=== PATIENT | female | born 1970 | race Caucasian/White ===

== ENCOUNTER → 2021-03-08 01:00 | Outpatient (CLI) | payer OTHER, SELFPAY ==
[2021-03-09 18:17] LABS: SARS-CoV-2 RNA PCR Positive
== END ==
PROVIDERS: PCP Internal Medicine; Visit Provider Internal Medicine
DX: U07.1 COVID-19 (principal)
CPT/HCPCS: C9803; U0003; U0005

== ENCOUNTER 2024-09-02 11:59 | Emergency (ER) | payer OTHER, SELFPAY ==
--- NOTE | ~2024-09-02 | CT_ITS ---
EXAM: CT abdomen pelvis wo con - 09/02/2024 13:15 CDT History: 53 years old Female with left flank pain TECHNIQUE: Multidetector CT of the abdomen and pelvis without contrast. Coronal and sagittal reforma ts were also provided for review. Automatic exposure control was used for this study. COMPARISON: 03/01/2018. FINDINGS: Evaluation of bowel and hollow viscera is limited in the absence of oral contrast. VISUALIZED CHEST: Basilar atelectasis and/or scarring. Moderate-sized hiatal hernia. ABDOMEN and PELVIS: LIVER: Within normal limits. GALLBLADDER: No calcified gallstones. BILE DUCTS: No dilatation. SPLEEN: Within normal limits. PANCREAS: Within normal limits. ADRENAL GLANDS: Within normal limits. KIDNEYS and URETERS: Moderate to severe left hydroureteronephrosis with transition point in the left distal ureter, right before ureteropelvic junction. No discrete calculus seen. URINARY BLADDER: Within normal limits. STOMACH and BOWEL: No abnormal bowel wall thickening. No obstruction. REPRODUCTIVE ORGANS: Uterus is present. IUD seen. MESENTERY/PERITONEAL CAVITY: No free fluid or pneumoperitoneum. LYMPH NODES: No abdominal or pelvic lymphadenopathy. ABDOMINAL WALL: Within normal limits. VASCULATURE: Within normal limits. MUSCULOSKELETAL: Multilevel degenerative changes of the spine. IMPRESSION: Moderate to severe left hydroureteronephrosis with transition point in the left distal ureter, right before ureteropelvic junction. No discrete calculus seen. Reviewed, dictated and finalized at location A.
--- OUTSIDE RECORDS SUMMARY | 2024-09-02 12:01 | XMS_ITS | Clinical Summary ---
Author Organization [facility] [employer] [address] [place] [address] [address] [address] [place] [address] Care Team Providers Care Overhead Cleaner Maintainer Name Role Phone Angelito Carrero MD Primary Care Provider [phone] Allergies Active Allergy Reactions Criticality Noted Date Comments Sulfa (Sulfonamide Antibiotics) Nausea and Vomiting Low 11/15/2018 Medications phentermine/topira mate (QSYMIA ORAL) A ctive Phentermine 15 mg Capsule Active Active Problems No known active problems Family History Medical History Relation Name Comments Heart Disease Brother 1 Heart Disease Brother 2 Other Father kidney failure Lung Cancer Mother Relation Name Status Comments Brother 1 Alive Brother 2 Father Mother Social History Tobacco Use Types Packs/Day Years Used Date Smoking Tobacco: Never Alcohol Use Standard Drinks/Week Comments Yes 0 (1 standard drink = 0.6 oz pur e alcohol) rare Comments Unknown Sex and Gender Information Value Date Recorded Sex Assigned at Not on file Legal Sex Female 9:33 PM CDT Gender Identity Not on file Sexual Orientation Not on file 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 Not on file Not on file Not on fi le Last Filed Vital Signs Vital Sign Reading Time Taken Comments Blood Pressure 128/64 11/15/2018 10:47 AM CDT Pulse - - Temperature - - Respiratory Rate - - Oxygen Saturation - - Inhaled Oxygen Concentration - - Weight 102.1 kg (225 lb) 11/15/2018 10:47 AM CDT Height 162.6 cm (5' 4) 11/15/2018 10:47 AM CDT Body Mass Index 38.62 11/15/2018 10:47 AM CDT Plan of Treatment Health Maintenance Due Date Last Done Comments DTAP/TDAP/TD VACCINES (1 - Tdap) 09/23/1987 HEPATITIS B VACCINES (1 of 3 - 19+ 3-dose series) 08/25 HPV/Cotest (21-29) 1989 CERVICAL CANCER SCREENING 1998 HPV/Cotest (30-65) 1998 PAP SMEAR 1998 BREAST CANCER SCREENING 2008 COLORECTAL SCREENING 2013 Colorectal Cancer Screening 2013 FIT-DNA Q 3 years 2013 FIT/FOBT Q 1 year 2013 Flex Sig/CT Colonography Q 5 years 2013 ZOSTER VACCINE (1 of 2) 2018 INFLUENZA VACCINE (#1) [address] [place], [place] [id number] [place], [place] [id number] Care Teams Overhead Cleaner Maintainer Relationship Specialty Start Date End Date Angelito Carrero MD [address] [place] [id number] PCP - General Internal Medicine 11/15/18
--- OUTSIDE RECORDS SUMMARY | 2024-09-02 12:02 | XMS_ITS | Patient Health Record ---
Author Organization [facility] Address [address] [place], [place] [id number] Support Name Relationship Address Phone JOAN VALDOVINOS Emergency Contact Unknown [phone] CHRISTINA VALDOVINOS Guarantor Unknown [phone] Reason For Referral No Information Plan Of Treatment No Information Insurance Providers Payer Name Payer Address Payer Phone Subscriber Number Group Number Insured Name Patient Relationship to Insured Coverage Start Date Coverage End Date [facility] [address] [address] [place] [id number] JOAN SOSA Spouse - patient is the spouse of the insured
--- OUTSIDE RECORDS SUMMARY | 2024-09-02 12:02 | XMS_ITS | Referral Summary ---
Author Organization [facility] Address [address] [place] [id number] Care Team Providers Care Washing Machine Assembler Name Role Phone Angelito Carrero MD Primary Care Provider Encounters Date Type Department Care Team Description 08/22/2024 Orders Only [facility] Primary Care at [address] [phone] Angelito Carrero MD Skin lesion of face (Primary Dx) 08/22/2024 Orders Only [facility] Primary Care at [address] [phone] Angelito Carrero MD 08/19/2024 Telephone [facility] Primary Care at [address] [phone] Angelito Carrero MD Referral Request 08/11/2024 Orders Only [facility] Primary Care at [address] [phone] Angelito Carrero MD from Last 3 Months Allergies Active Allergy Reactions Criticality Noted Date Comments Sulfa (Sulfonamide Antibiotics) Medications acyclovir (ZOVIRAX) 400 mg tablet Take 1 tab (400 mg) by mouth 5 times a day for 5 days. 25 tablet 5 2 Active naloxone (NARCAN) 4 mg/actuation spray,non-aeros ol Administer 1 spray into affected nostril(s) as needed for opioid reversal or respiratory depression Call 911. Administer a single spray in one nostril. Repeat every 3 minutes as needed if no or minimal response. 1 each 3 Active cyclobenzaprine (FLEXERIL) 10 mg tablet Take 1 tablet (10 mg total) by mouth 3 (three) times a day as needed for muscle spasms 30 tablet 3 4 Active escitalopram (LEXAPRO) 10 mg tablet Take 1 tablet (10 mg total) by mouth daily 90 tablet 3 4 Active LORazepam (ATIVAN) 0.5 mg tablet Take 1 tablet (0.5 mg total) by mouth every 6 (six) hours as needed for anxiety 20 tablet 5 4 Active rosuvastatin (CRESTOR) 20 mg tablet Take 1 tablet (20 mg total) by mouth daily To lower cholesterol 90 tablet 4 11/13/19 25 Active traMADoL (ULTRAM) 50 mg tablet Take 1 tablet (50 mg total) by mouth every 6 (six) hours 100 tablet 4 Active traZODone (DESYREL) 100 mg tablet Take 1 tablet (100 mg total) by mouth nightly as needed for sleep 30 tablet 4 11/13/19 25 Active semaglutide (WEGOVY) 0.25 mg/0.5 mL auto-injector Inject 0.5 mL (0.25 mg total) under the skin every 7 days 2 mL 4 Active pseudoephedrine -guaifenesin 60-375 mg tabletIndicatio ns:Rhinitis,rhi norrhea Take 1 tablet by mouth nightly 14 tablet 2 4 Active guaiFENesin-pse udoephedrine (MUCINEX D) 600-60 mg per 12 hr tablet Take 1 tablet by mouth nightly 30 tablet 3 4 Active topiramate (TOPAMAX) 25 mg tablet TAKE 2 TABLETS TWICE A DAY 360 tablet 1 4 Active Wegovy 1 mg/0.5 mL auto-injector ADMINISTER 1 MG UNDER THE SKIN EVERY 7 DAYS. CALL AFTER THE 4TH DOSE SO INSERT CAN INCREASE THE DOSE AGAIN 2 mL 5 Active phentermine (ADIPEX-P) 37.5 mg tablet TAKE 1 TABLET(37.5 MG) BY MOUTH DAILY BEFORE BREAKFAST 30 tablet [address] (VOLTAREN) 75 mg EC tablet Take 1 tablet (75 mg total) by mouth 2 (two) times a day 60 tablet 11 5 08/12/19 26 Active Active Problems Problem Noted Date Diagnosed Date Severe obesity 11/13/2023 Recurrent major depression 04/13/2023 History of 2019 novel coronavirus disease (COVID -19) 02/07/2022 Primary insomnia 02/07/[address] scan 07/26/2020 Overview (07/26/2020): Added automatically from request for surgery [id number] Colonic mass 07/26/2020 Overview (07/26/2020): Added automatically from request for surgery [id number] BMI 35.0-35.9,adult 02/27/2017 Mixed hyperlipidemia 01/23/2017 Herniated lumbar intervertebral disc 04/11/2015 Assessment & Plan (11/01/2018 3:03 PM CDT): Prior imaging in 2018 reviewed in detailed above. Given chronicity of condition and progression agreeing to repeat MRI lumbar spine prior to consultation with specialist. Stephanie. With the Medrol and Flexeril prescription as prior prescribed, supportive management was also advised as prior implemented. Further recommendations pending results of MRI. Assessment & Plan (10/01/2017 8:58 AM CDT): Recommended corticosteroids in tapering fashion over course of 10 days considering severity of sciatica down left leg an upcoming vacation she has planned. Also comma muscle relaxers only to use p.r.n. for acute alleviation sciatic pain and back pain and possibly help some of the spasming that occurs upon standing. Heat/ice stretching with we discussed physical therapy which I recommended to give our office a call if she desires to complete physical therapy for acute pain as well. Resolved Problems Problem Noted Date Diagnosed Date Resolved Date Diabetes mellitus 04/13/2023 11/13/2023 Hematochezia 07/26/2020 02/09/2021 Overview (07/26/2020): Added automatically from request for surgery [id number] Abdominal pain 07/26/2020 02/09/2021 Overview (07/26/2020): Added automatically from request for surgery [id number] Acute URI 02/27/2017 11/01/2018 Assessment & Plan (02/27/2017 9:55 AM PIPELINE INSPECTOR): Advised patient is likely be more of a viral URI at this time considering negative testing in office today and certainly with clinical examination however I did go ahead and send off a Z-Bennie for her to start only on a as needed basis if in the event symptoms seem to worsen come Thursday or certainly if they fail to improve with [id number] management was advised office today including salt water gargles, Flonase nasal spray, antihistamines, increasing fluids and rest. Close monitoring outpatient follow-up as needed regarding condition Class 2 obesity due to exces s calories without serious comorbidity with body mass index (BMI) of 35.0 to 35.9 in adult 01/23/201703/2020 Constipation 10/06/2014 12/03/2018 Immunizations Immunization Administration Dates Next Due Influenza, Quadrivalent, Moni l Culture-based MDCK, Preservative Free, Antibiotic Free, Intramuscular 03/15/2019 Influenza, Unspecified 12/25/2023(Deferr ed: Patient Refused),11/13/2023(Deferred: Patient Refused),04/13/2023(Deferred: Patient Refused),02/18/2022(Deferred: Patient Refused),02/06/2021(Deferred: Patient Refused),11/23/2020(Deferred: Patient Refused),12/09/2019(Deferred: Patient Refused),12/03/2018(Deferred: Patient Refused),02/17/2018(Deferred: Patient Refused),11/23/2017(Deferred: Patient Refused) Tdap 04/17/2023 Social History Tobacco Use Types Packs/Day Years Used Date Smoking Tobacco: Never Smokeless Tobacco: Never Tobacco Cessation:Counseling Given: Yes Alcohol Use Standard Drinks/Week Comments No 0 (1 standard drink = 0.6 oz pur e alcohol) AUDIT-C Answer Date Recorded Q1: How often do you have a drink containing alcohol? Never 04/13/2023 Q2: How many drinks containi ng alcohol do you have on a typical day when you are drinking? Patient does not drink Q3: How often do you have si x or more drinks on one occasion? Never 04/13/2023 PHQ-2 Answer Date Recorded PHQ-2 Total Score (If total score is 3 or more points, staff should administer the PHQ-9) 2 02/11/2024 PHQ-9 Answer Date Recorded PHQ-9 Total Score 9 02/11/2024 Comments No Sex and Gender Information Value Date Recorded Sex Assigned at Not on file Legal Sex Female 11:52 PM PIPELINE INSPECTOR Gender Identity Female 12/06/2019 9:36 AM CDT Sexual Orientation Not on file Last Filed Vital Signs Vital Sign Reading Time Taken Comments Blood Pressure 152/99 02/11/2024 8:25 AM PIPELINE INSPECTOR Pulse 77 02/11/2024 8:23 AM PIPELINE INSPECTOR Temperature 36.6 C (97.8 F) 12/25/2023 9:11 AM CDT Respiratory Rate 18 02/11/2024 8:23 AM PIPELINE INSPECTOR Oxygen Saturation 99% 02/11/2024 8:23 AM PIPELINE INSPECTOR Inhaled Oxygen Concentration - - Weight 101.6 kg (224 lb) 12/25/2023 9:11 AM CDT Height 160 cm (5' 3) 12/25/2023 9:11 AM CDT Body Mass Index 39.68 12/25/2023 9:11 AM CDT Plan of Treatment Not on file Medical Devices Implanted Type Area Bank Reconciliator Device Identifier Shelf Expiration Date Model / Serial / Lot Marker Breast Biopsy Ultraclip Bard Biodur 108 Polyvinyl Alcohol Coil L12 Cm Od17 Ga Tissue 2 Trigger Permanent Ultrasound Visibility Rigid Needle Interwoven Sterile Disposable Supreme - [id number] - [id number] Implanted:Qty: 1 on 04/16/2017 at [facility] Breast Right: Breast Bard Peripheral Vascular 09/20/2019 [id number] / [id number] / Procedures Procedure Name Priority Date/Time Associated Diagnosis Comments EGFR Routine 11/06/2023 7:08 AM CDT Mixed hyperlipidemia LIPID PANEL Routine 11/06/2023 7:08 AM CDT Mixed hyperlipidemia SCREENING MAMMOGRAM BILATERAL W JUAN C Schedule Routine, Read Routine (OP Routine) 05/02/2023 8:38 AM PIPELINE INSPECTOR Screening mammogram, encounter for COLONOSCOPY 07/30/2020 7:45 AM CDT from Last 3 Months or Most Recently Relevant to Health Maintenance Results * (ABNORMAL) eGFR (11/06/2023 7:08 AM CDT) eGFR 56(L) >=60 mL/min/1. 73 m2 Comment: Interpretive Data Reference Interval Normal >/= 90 mL/min/1.73m2 Mildly decreased* 60 - 89 mL/min/1.73m2 Mildly to moderately decreased 45 - 59 mL/min/1.73m2 Moderately to severely decreased 30 - 44 mL/min/1.73m2 Severely decreased 15 - 29 mL/min/1.73m2 Kidney Failure < 15 mL/min/1.73m2 *Relative to young adult level Estimated glomerular filtration rate is determined by the 2020 CKD-EPI equation recommended by the National Kidney Foundation (A Unifying Approach to GFR Estimation: Recommendations of the NKF-ASK Task Force on Reassessing the Inclusion of Race in Diagnosing Kidney Disease, JASN 2020). The CKD-EPI equation should not be used for patients with unstable renal function and has not been validated in children and those over 70. Current interpretive data was last reviewed 2020. Blood 11/06/2023 7:08 AM CDT 11/06/2023 8:10 AM CDT us Angelito Carrero MD LAB BLOOD ORDERABLES Fi nal Result MORELIA MONTALVO [place] [address] [facility] [place] [address] * (ABNORMAL) Lipid panel (11/06/2023 7:08 AM CDT) Cholesterol 223(H) 30 - 199 mg/dL Comment: Interpretive Data Ages < or = 19 years Acceptable: <170 mg/dL Borderline high: 170-199 mg/dL High: >or= 200 mg/dL Ages > or = 20 years Desirable: <200 mg/dL Borderline high: 200-239 mg/dL High: >or= 240 mg/dL Literature References: 1. Expert Panel on Integrated Guidelines for Cardiovascular Health and Risk Reduction in Children and Adolescents. Pediatrics 2011;128:S213 2. NCEP Expert Panel. Circulation 2004;110:227 Current Interpretive Data was last revised on 2017. Triglycerides 48 <=149 mg/dL MORELIA MONTALVO (JOSE) Comment: Interpretive Data Ages < or = 9 years Acceptable: <75 mg/dL Borderline high: 75-99 mg/dL High: >or= 100 mg/dL Ages 10 to 20 years Acceptable: <90 mg/dL Borderline high: 90-129 mg/dL High: >or= 130 mg/dL Ages > or = 20 years Desirable: <150 mg/dL Borderline high: 150-199 mg/dL High: 200-499 mg/dL Very high: >or= 499 mg/dL Literature References: 1. Expert Panel on Integrated Guidelines for Cardiovascular Health and Risk Reduction in Children and Adolescents. Pediatrics 2011;128:S213 2. NCEP Expert Panel. Circulation 2004;110:227 Current Interpretive Data was last revised on 2017. HDL 60 >=40 mg/dL MORELIA MONTALVO (JOSE) Comment: Interpretive Data Ages < or = 19 years Acceptable: >45 mg/dL Borderline low: 40-45 mg/dL Low: <40 mg/dL Ages > or = 20 years Desirable: >or= 60 mg/dL Low: <40 mg/dL Literature References: 1. Expert Panel on Integrated Guidelines for Cardiovascular Health and Risk Reduction in Children and Adolescents. Pediatrics 2011;128:S213 2. NCEP Expert Panel. Circulation 2004;110:227 Current Interpretive Data was last revised on 2017. LDL, calculated 155(H) <=129 mg/dL MORELIA MONTALVO (JOSE) Comment: Interpretive Data Ages < or = 19 years Acceptable: <110 mg/dL Borderline high: 110-129 mg/dL High: >or= 130 mg/dL Ages > or = 20 years Optimal: <100 mg/dL Near optimal: 100-129 mg/dL Borderline high: 130-159 mg/dL High: >160 mg/dL Calculated using the Maxwell LDL-C estimating equation. This equation was implemented on 2023. Prior to this date LDL-C was estimated using the Friedewald equation. Literature References: 1. Expert Panel on Integrated Guidelines for Cardiovascular Health and Risk Reduction in Children and Adolescents. Pediatrics 2011;128:S213 2. NCEP Expert Panel. Circulation 2004;110:227 3. Hans Santacruz et al. EDGARDO Cardiol. 2019June 23;5(5):540-548. doi: 10.1001/jamacardio.2020.0013 Current Interpretive Data was last revised on 2023. Non-HDL Cholesterol 163 mg/dL MORELIA MONTALVO (JOSE) Comment: Interpretive Data Ages < or = 19 years Acceptable: <120 mg/dL Borderline high: 120-144 mg/dL High: >145 mg/dL Ages > or = 20 years When triglycerides are >200 mg/dL, Non-HDL cholesterol is a secondary target of therapy with treatment goals that are 30 mg/dL greater than the LDL cholesterol target. Literature References: 1. Expert Panel on Integrated Guidelines for Cardiovascular Health and Risk Reduction in Children and Adolescents. Pediatrics 2011;128:S213 2. NCEP Expert Panel. Circulation 2004;110:227 Current Interpretive Data was last revised on 2017. Chol/HDL ratio 4 CASEY MONTALVO (JOSE) Blood 11/06/2023 7:08 AM CDT 11/06/2023 8:10 AM CDT Narrative MORELIA CARRASCO) - 11/06/2023 8:42 AM CDT Has the patient been fasting for 8 hours or more?->Yes us Angelito Carrero MD LAB BLOOD ORDERABLES Fi nal Result MORELIA MONTALVO (JOSE) 1 [facility] Department of Laboratories [place], [place] [id number] * Screening Mammogram Bilateral W Juan C (05/02/2023 8:38 AM PIPELINE INSPECTOR) Anatomical Region Laterality Modality Breast Bilateral Mammography 05/04/2023 7:38 AM CDT Impressions 05/04/2023 7:38 AM CDT There is no mammographic evidence of malignancy. A 1 year screening mammogram is recommended. BI-RADS: 2 - Benign. The patient has been or will be contacted. The patient will be entered into a reminder system with a target due date of 1 year for her next mammogram. Electronically signed by: Nish Olvera M.D. Narrative 05/04/2023 7:38 AM CDT EXAMINATION: SCREENING MAMMOGRAM BILATERAL W JUAN C ORDERING HEALTHCARE PROVIDER: SELF SCREENING MAMMOGRAM HISTORY: Routine screening mammography. COMPARISON: 04/05/2022, 02/06/2021, 02/03/2020, 04/16/2017 TECHNIQUE: CC and MLO views of the bilateral breasts were obtained with digital technique using breast tomosynthesis with C view. Computer aided detection was utilized. FINDINGS: DENSITY: The tissue of the bilateral breasts is almost entirely fatty. BREASTS: There are postoperative changes of bilateral reduction mammoplasty. There is an unchanged biopsy marking clip in the lower right breast. There are benign calcifications in the right breast, some of which are associated with oil cysts/fat necrosis. There is no new suspicious finding in either breast on mammogram. us Self Screening Mammogram IMG MAMMO PROCEDURES Fi nal Result * COLONOSCOPY (07/30/2020 7:45 AM CDT) Anatomical Region Laterality Modality Other Narrative Procedure Note Hayden Gallo MD - 07/30/2020 7:45 AM CDT [facility] Patient Name: Iesha Leon Procedure Date: 07/30/2020 7:45 AM Date of : 1970 Admit Type: Outpatient Age: 49 Gender: Female Attending MD: Hayden Gallo M.D. Room: [facility] ENDOSCOPY ROOM 1 Note Status: Finalized Patient Profile: This is a 49 year old female. Patient had recent complaints of right lower quadrant pain and bloodin the stool. CT scan showed localized thickening atthe the cecum. Colonoscopy for evaluation. She has previous negative colo guard test. No familyhistory of colon cancer Procedure: Colonoscopy Indications: This is the patient's first colonoscopy, Abdominal pain in the right lower quadrant, Hematochezia, Abnormal CT of the GI tract Referring MD: Angelito Carrero M.D. Providers: Hayden Gallo M.D. Impression: - No mass lesions in the cecum. - Localized erythematous mucosa in the cecum. Biopsied. None specific vs. mild resolving inflammation. - Mild diverticulosis in the sigmoid colon. - Internal hemorrhoids. Recommendation: - Await pathology results. - Repeat colonoscopy in 10 years for screening purposes. - Continue present medications. - Follow up in our GI office if symptoms of painand blood in the stool continued. Medicines: Monitored Anesthesia Care Complications: No immediate complications. Estimated Blood Loss: Estimated blood loss: none. Procedure: Pre-Anesthesia Assessment: - Prior to the procedure, a History and Physicalwas performed, and patient medications and allergieswere reviewed. The patient's tolerance of previous anesthesia was also reviewed. The risks andbenefits of the procedure and the sedation options and risks were discussed with the patient. All questions were answered, and informed consent was obtained. Prior Anticoagulants: The patient has taken no previous anticoagulant or antiplatelet agents. ASA Grade Assessment: II - A patient with mild systemicdisease. After reviewing the risks and benefits, the patient was deemed in satisfactory condition to undergo the procedure. The benefits, risks and alternatives of theprocedure and sedation were discussed and informed consentwas obtained. All questions were answered. Please referto the signed informed consent document in the medical record. The bowel preparation used was Miralax via split dose instruction. The bowel preparation usedwas bisacodyl tablets via split dose instruction. The scope was passed under direct vision. The Pediatric Colonoscope [id number]-[id number] was introducedthrough the anus and advanced to the the cecum, identifiedby appendiceal orifice and ileocecal valve. Thequality of the bowel preparation was good. Bowel prep was administered using a split dose. Findings: The perianal and digital rectal examinations were normal. The terminal ileum appeared normal. The ileocecal valve appearednormal. The appendiceal orifice appeared normal. A localized area of mildly erythematous mucosa was found in thececum. Biopsies were taken with a cold forceps for histology. This may represent mild resolving colitis or typhlitis. Could be nonspecific.No mass lesions noted within the cecum. The ascending colon appeared normal. The transverse colon appeared normal. The descending colon appeared normal. A few small-mouthed diverticula were found in the sigmoid colon. Internal hemorrhoids were found during retroflexion. The hemorrhoids were small. Electronically signed by Hyaden Gallo M.D. Hayden Gallo M.D. 07/30/2020 9:11:45 AM Number of Addenda: 0 Note Initiated On: 07/30/2020 7:45 AM Procedure Code(s): --- Professional --- 23536, Colonoscopy, flexible; with biopsy, single or multiple Diagnosis Code(s): --- Professional --- K64.8, Other hemorrhoids K63.89, Other specified diseases of intestine R10.31, Right lower quadrant pain K92.1, Melena (includes Hematochezia) K57.30, Diverticulosis of large intestine without perforation orabscess without bleeding R93.3, Abnormal findings on diagnostic imaging of other parts of digestive tract CPT copyright 2019 [employer]. All rights reserved. The codes documented in this report are preliminary and upon senior clinical data analyst reviewmay be revised to meet current compliance requirements. Recognized by the [place] [employer] for promoting quality in endoscopy Hayden Gallo MD ENDOSCOPY PROCEDURES Final Result from Last 3 Months or Most Recently Relevant to Health Maintenance Insurance [facility] CHOICE PLUS [facility] CHOICE PLUS [facility] CHOICE PLUS Advance Directives For more information, please contact: [phone] * Full Code (Latest Code Status on File) Date Activated Date Inactivated Comments 07/30/2020 7:50 AM 07/30/2020 1:43 PM * Full Code Date Activated Date Inactivated Comments 07/30/2020 7:50 AM 07/30/2020 7:50 AM Care Teams Washing Machine Assembler Relationship Specialty Start Date End Date Angelito Carrero MD PCP - General 09/27/12
--- OUTSIDE RECORDS SUMMARY | 2024-09-02 12:02 | XMS_ITS | Encounter Summary ---
Author Organization [facility] Address [address] [place] [address] Phone Care Team Providers Care Defect Repairer Glassware Name Role Phone Angelito Carrero MD Primary Care Provider Encounter Details Date Type Department Care Team (Late st Contact Info) Description 07/11/2017 Orders Only [facility] ProviderYoana MD [address] [place] [address] Social History Tobacco Use Types Packs/Day Years Used Date Smoking Tobacco: Never Smokeless Tobacco: Never Alcohol Use Standard Drinks/Week Comments No 0 (1 standard drink = 0.6 oz pur e alcohol) Comments No Sex and Gender Information Value Date Recorded Sex Assigned at Not on file Legal Sex Female 11:52 PM MOLD FINISHER Gender Identity Female 12/06/2019 9:36 AM CDT Sexual Orientation Not on file documented as of this encounter Plan of Treatment Not on file documented as of this encounter Procedures Procedure Name Priority Date/Time Associated Diagnosis Comments DISCHARGE LABORATORY CUMULATIVE REPORT 07/11/2017 12:00 AM CDT documented in this encounter Results * DISCHARGE LABORATORY CUMULATIVE REPORT (07/11/2017 12:00 AM CDT) Narrative 07/11/2017 12:00 AM CDT Ordered by an unspecified provider. Historical Provider LAB BLOOD ORDERABLES Tanja l Result documented in this encounter Visit Diagnoses Not on filedocumented in this encounter Additional Health Concerns Infection Onset Date Last Indicated Resolved Time COVID: Suspected 03/05/2021 03/05/2021 03/15/2021 3:05 AM MOLD FINISHER documented as of this encounter Care Teams Defect Repairer Glassware Relationship Specialty Start Date End Date Angelito Carrero MD PCP - General 09/27/12 documented as of this encounter
--- OUTSIDE RECORDS SUMMARY | 2024-09-02 12:02 | XMS_ITS | Clinical Summary ---
Author Organization [facility] Address [address] [place] [phone] Care Team Providers Care Engine Setter Name Role Phone Angelito Carrero MD Primary Care Provider Allergies Active Allergy Reactions Criticality Noted Date [...] mouth daily To lower cholesterol 90 tablet 3 4 11/13/19 25 Active traMADoL (ULTRAM) 50 mg tablet Take 1 tablet (50 mg total) by mouth every 6 (six) hours 100 tablet 5 4 Active traZODone (DESYREL) 100 mg tablet Take 1 tablet (100 mg total) by mouth nightly as needed for sleep 30 tablet 11 4 11/13/19 25 Active semaglutide (WEGOVY) 0.25 [...] (07/26/2020): Added automatically from request for surgery [id number] Colonic mass 07/26/2020 Overview (07/26/2020): Added automatically from request for surgery [id number] BMI 35.0-35.9,adult 02/27/2017 Mixed hyperlipidemia 01/23/2017 Herniated lumbar intervertebral disc 04/11/2015 Assessment & Plan (11/01/2018 3:03 PM CDT): Prior imaging in 2018 reviewed in detailed above. Given chronicity of condition and progression agreeing to repeat MRI lumbar spine prior to consultation with specialist. Cnt. With the Medrol and Flexeril prescription as [...] (07/26/2020): Added automatically from request for surgery [id number] Abdominal pain 07/26/2020 02/09/2021 Overview (07/26/2020): Added automatically from request for surgery [id number] Acute URI 02/27/2017 11/01/2018 Assessment & Plan (02/27/2017 9:55 AM RODBUSTER): Advised patient is likely be more of a viral URI at this time considering negative testing in office today and certainly with clinical examination however I did go ahead and send off a Z-Bennie for her to start only on a as needed basis if in the event symptoms seem to worsen come Thursday or certainly if they fail to improve with [id number] management was advised office today including salt water gargles, Flonase nasal spray, antihistamines, increasing fluids and rest. Close monitoring outpatient follow-up as needed regarding condition Class 2 obesity due to exces s calories without serious comorbidity with body mass index (BMI) of 35.0 to 35.9 in adult 01/23/201703/2020 Constipation 10/06/2014 12/03/2018 Encounters Date Type Department Care Team Description 08/22/2024 Orders Only [facility] Primary Care at [address] [place] [phone] Angelito Carrero MD Skin lesion of face (Primary Dx) 08/22/2024 Orders Only [facility] Primary Care at [address] [phone] Angelito Carrero MD 08/19/2024 Telephone [facility] Primary Care at [address] [phone] Angelito Carrero MD Referral Request 08/11/2024 Orders Only [facility] Primary Care at [address] [phone] Angelito Carrero MD from Last 3 Months Immunizations Immunization Administration Dates Next Due Influenza, Quadrivalent, Moni l Culture-based MDCK, Preservative Free, Antibiotic Free, Intramuscular 03/15/2019 Influenza, Unspecified 12/25/2023(Deferr ed: Patient Refused),11/13/2023(Deferred: Patient Refused),04/13/2023(Deferred: Patient Refused),02/18/2022(Deferred: Patient Refused),02/06/2021(Deferred: Patient Refused),11/23/2020(Deferred: Patient Refused),12/09/2019(Deferred: Patient Refused),12/03/2018(Deferred: Patient Refused),02/17/2018(Deferred: Patient Refused),11/23/2017(Deferred: Patient Refused) Tdap 04/17/2023 Surgical History Surgery Date Site/Laterality Comments REDUCTION MAMMAPLASTY Bilateral June 2015 BREAST BIOPSY 04/16/2017 Right COLONOSCOPY 07/30/2020 Medical History Medical History Date Comments Hx Other Medical 01/1987 Gallbladder Jon elizabeth Hx Other Medical orthastotic kne e surgery; Comments: LNP 07/08/2016 - Family History Medical History Relation Name Comments Heart disease Brother 2 Heart disease; Heart disease Father Heart disease; Stroke Father Stroke; Lung cancer Mother Cancer, lung; Relation Name Status Comments Brother 1 Alive Brother 2 Father Alive Mother Alive Social History Tobacco Use Types Packs/Day Years [...] on file Legal Sex Female 11:52 PM RODBUSTER Gender Identity Female 12/06/2019 9:36 AM CDT Sexual Orientation Not on file Obstetrics History Para Term AB IAB SAB Ectopic Multiple Livin g Live Births 1 1 1 Date Outcome GA Total Labor Labor/2nd/3rd Weight Sex Type Anes PTL Jen A1 A5 Name Clin Term Last Filed Vital Signs Vital Sign Reading Time Taken Comments Blood Pressure 152/99 02/11/2024 8:25 AM RODBUSTER Pulse 77 02/11/2024 8:23 AM RODBUSTER Temperature 36.6 C (97.8 F) 12/25/2023 9:11 AM CDT Respiratory Rate 18 02/11/2024 8:23 AM RODBUSTER Oxygen Saturation 99% 02/11/2024 8:23 AM RODBUSTER Inhaled Oxygen Concentration - - Weight 101.6 kg (224 lb) 12/25/2023 9:11 AM CDT Height 160 cm (5' 3) 12/25/2023 9:11 AM CDT Body Mass Index 39.68 12/25/2023 9:11 AM CDT Plan of Treatment Health Maintenance Due Date Last Done Comments Albumin Creatinine Ratio, Urine 1970 Cervical Cancer Screening 1970 Hemoglobin A1C 1968 Hepatitis C Screening 1970 Osteoporosis Screening-Bone Density Scan 1970 Dilated Eye Exam 1968 Foot Exam 1968 Hepatitis B Screening 1986 Pneumococcal vaccine <65 (1 of 2 - PCV) 09/23/1987 Zoster Vaccine (1 of 2) 2018 Covid-19 Vaccine (3 - 2023-2 5 season) 2023 08/24/2020, 08/02/2020 Regular Well Visit/Exam 18-64 04/13/2024, 02/07/2022, 02/06/2021, Additional history exists Breast Cancer Screening-Mammogram 05/01/2024 05/02/2023, 04/05/2022, 02/06/2021, Additional history exists Influenza Vaccine (#1) 2024 03/15/2019 Lipid Panel 11/05/2024 11/06/2023, 02/0 10/2023, 01/21/2022, Additional history exists eGFR 11/05/2024 11/06/2023, 02/0 10/2023, 01/21/2022, Additional history exists Depression Screening 02/10/2025 02/11/2024, 02/11/2024, 12/25/2023, Additional history exists Colon Cancer Screening-Colonoscopy 07/30/2030 07/30/2020 DTaP/Tdap/Td Vaccine (2 - Td or Tdap) 04/17/2033 04/17/2023 Colon Cancer Screening-CT Colonography Discontinued 07/30/2020 Colon Cancer Screening-DNA Stool Discontinued 07/30/2020, 06/21/2019, 06/16/2019 Colon Cancer Screening-FIT Discontinued 07/30, 06/21/2019, 06/16/2019 Colon Cancer Screening-Sigmoidoscopy Discontinued 07/30/2020 Medical Devices Implanted Type Area Family Dinner Service Specialist Device Identifier Shelf Expiration Date Model / Serial / Lot Marker Breast Biopsy Ultraclip Bard Biodur 108 Polyvinyl Alcohol Coil L12 Cm Od17 Ga Tissue 2 Trigger Permanent Ultrasound Visibility Rigid Needle Interwoven Sterile Disposable [place] - [id number] - [id number] Implanted:Qty: 1 on 04/16/2017 at [facility] Breast Right: Breast Bard Peripheral Vascular 09/20/2019 [id number] / [id number] / Procedures Procedure Name Priority Date/Time Associated Diagnosis Comments EGFR Routine 11/06/2023 7:08 AM CDT Mixed hyperlipidemia LIPID PANEL Routine 11/06/2023 7:08 AM CDT Mixed hyperlipidemia SCREENING MAMMOGRAM BILATERAL W JUAN C Schedule Routine, Read Routine (OP Routine) 05/02/2023 8:38 AM RODBUSTER Screening mammogram, encounter for COLONOSCOPY 07/30/2020 7:45 [...] of Race in Diagnosing Kidney Disease, JASN 202). The CKD-EPI equation should not be used for patients with unstable renal function and has not been validated in children and those over 70. Current interpretive data was last reviewed 2020. Blood 11/06/2023 7:08 AM CDT 11/06/2023 8:10 AM CDT us Angelito Carrero MD LAB BLOOD ORDERABLES Fi nal Result MORELIA MONTALVO (JOSE) 1 [facility] Department [place] [address] * (ABNORMAL) Lipid panel (11/06/2023 7:08 AM [...] mg/dL High: >160 mg/dL Calculated using the Hans LDL-C estimating equation. This equation was implemented [...] CDT 11/06/2023 8:10 AM CDT Narrative MORELIA MONTALVO (JOSE) - 11/06/2023 8:42 AM CDT Has the patient been fasting for 8 hours or more?->Yes us Angelito Carrero MD LAB BLOOD ORDERABLES Fi nal Result MORELIA MONTALVO (JOSE 1 [facility] Department [place] [address] * Screening Mammogram Bilateral W Juan C (05/02/2023 8:38 AM RODBUSTER) Anatomical Region Laterality Modality Breast Bilateral Mammography [...] Gallo MD - 07/30/2020 7:45 AM CDT [facility] Patient Name: Iesha Leon Procedure Date: 07/30/2020 7:45 AM Date of : 1970 Admit Type: Outpatient Age: 49 Gender: Female Attending MD: Haydne Gallo M.D. Room: [facility] ENDOSCOPY ROOM 1 Note Status: Finalized Patient [...] under direct vision. The Pediatric Colonoscope PCF-H190L [id number] was introducedthrough the anus and advanced to [...] The hemorrhoids were small. Electronically signed by Hayden Gallo M.D. Hayden Gallo M.D. 07/30/2020 9:11:45 AM Number of Addenda: 0 Note Initiated On: 07/30/2020 7:45 AM Procedure Code(s): --- Professional --- 38200, Colonoscopy, flexible; with biopsy, single or multiple Diagnosis Code(s): --- Professional --- K64.8, Other hemorrhoids K63.89, Other specified diseases of intestine R10.31, Right lower quadrant pain K92.1, Melena (includes Hematochezia) K57.30, Diverticulosis of large intestine without perforation orabscess without bleeding R93.3, Abnormal findings on diagnostic imaging of other parts of digestive tract CPT copyright 2019 [employer]. All rights reserved. The codes documented in this report are preliminary and upon maintenance chief reviewmay be revised to meet current compliance requirements. Recognized by the [place] [employer] for promoting quality in endoscopy Hayden Gallo MD ENDOSCOPY PROCEDURES Final Result from Last 3 Months or Most Recently Relevant to Health [place] [address] [facility] [place] [address] [facility] CHOICE PLUS Member Subscriber Plan / Payer (Ef fective 2018-Present) Name:Iesha Leon Relation to Subscriber:Spouse Name:JOHNY LEON Date of :1960 (Home) Address: [address] [place] [address] Payer ID:[id number] (NAIC) Type:[facility] HMO/PPO Address: [address] [place] [address] [facility] CHOICE PLUS Member Subscriber Plan / Payer (Ef fective 2016-Present) Name:Iesha Leon Relation to Subscriber:Spouse Name:Johny Leon Date of :1960 (Home) Address: [address] [place] [address] Payer ID:[id number] (NAIC) Type:[facility] HMO/PPO Address: [address] [place] [address] Advance Directives For more information, please contact: [phone] * Full Code (Latest Code Status on File) Date Activated Date Inactivated Comments 07/30/2020 7:50 AM 07/30/2020 1:43 PM * Full Code Date Activated Date Inactivated Comments 07/30/2020 7:50 AM 07/30/2020 7:50 AM Care Teams Engine Setter Relationship Specialty Start Date End Date Angelito Carrero MD PCP - General 09/27/12
[2024-09-02 12:04] VITALS: BP 152/102; PULSE 79; RESP 16; TEMP 36.3; O2SAT 99
[2024-09-02 12:42] LABS: Add Urine Microscopic? YES; Appearance Urine Clear (Clear); Glucose Urine UA Negative (Negative); Leukocyte Esterase Ur Negative LEU/UL (Negative); Nitrate Urine Negative (Negative); Non Pathogenic Casts 0-2; Specific Grav Ur 1.016 (1.001-1.035)
--- OUTSIDE RECORDS SUMMARY | 2024-09-02 13:00 | XMS_ITS | Encounter Summary ---
Author Organization [facility] Address [address] [place] [address] Phone Care Team Providers Care Panel Machine Operator Name Role Phone Angelito Carrero MD Primary Care Provider Encounter Details Date Type Department Care Team (Late st Contact Info) Description 07/11/2017 Orders Only [facility] ProviderYoana MD [address] [place] [address] Social History Tobacco Use Types Packs/Day Years Used Date Smoking Tobacco: Never Smokeless Tobacco: Never Alcohol Use Standard Drinks/Week Comments No 0 (1 standard drink = 0.6 oz pur e alcohol) Comments No Sex and Gender Information Value Date Recorded Sex Assigned at Not on file Legal Sex Female 11:52 PM NEEDLEWORKER Gender Identity Female 12/06/2019 9:36 AM CDT [...] COVID: Suspected 03/05/2021 03/05/2021 03/15/2021 3:05 AM NEEDLEWORKER documented as of this encounter Care Teams Panel Machine Operator Relationship Specialty Start Date End Date Angelito Carrero MD PCP - General 09/27/12 documented as of this encounter
--- OUTSIDE RECORDS SUMMARY | 2024-09-02 13:00 | XMS_ITS | Clinical Summary ---
Author Organization [facility] Address [address] [place] [phone] Care Team Providers Care Reimbursement Counselor Name Role Phone Angelito Carrero MD Primary [...] (07/26/2020): Added automatically from request for surgery [id number] Colonic mass 07/26/2020 Overview (07/26/2020): Added automatically from request for surgery [id number] BMI 35.0-35.9,adult 02/27/2017 Mixed hyperlipidemia 01/23/2017 Herniated [...] (07/26/2020): Added automatically from request for surgery [id number] Abdominal pain 07/26/2020 02/09/2021 Overview (07/26/2020): Added automatically from request for surgery [id number] Acute URI 02/27/2017 11/01/2018 Assessment & Plan (02/27/2017 9:55 AM MAINTENANCE MECHANIC ELEVATORS): Advised patient is likely be more of a viral URI at this time considering negative testing in office today and certainly with clinical examination however I did go ahead and send off a Z-Bennie for her to start only on a as needed basis if in the event symptoms seem to worsen come Thursday or certainly if they fail to improve with [id number] management was advised office today including salt water gargles, Flonase nasal spray, antihistamines, increasing fluids and rest. Close monitoring outpatient follow-up as needed regarding condition Class 2 obesity due to exces s calories without serious comorbidity with body mass index (BMI) of 35.0 to 35.9 in adult 01/23/201703/2020 Constipation 10/06/2014 12/03/2018 Encounters Date Type Department Care Team Description 08/22/2024 Orders Only [facility] Primary Care at [address] [place] [phone] Angelito Carrero MD Skin lesion of face (Primary Dx) 08/22/2024 Orders Only [facility] Primary Care at [address] [phone] Angelito Carrero MD 08/19/2024 Telephone [facility] Primary Care at [address] [phone] Angelito Carrero MD Referral Request 08/11/2024 Orders Only [facility] Primary Care at [address] [phone] Angelito Carrero MD from Last 3 Months [...] on file Legal Sex Female 11:52 PM MAINTENANCE MECHANIC ELEVATORS Gender Identity Female 12/06/2019 9:36 AM CDT Sexual Orientation Not on file Obstetrics History Para Term AB IAB SAB Ectopic Multiple Livin g Live Births 1 1 1 Date Outcome GA Total Labor Labor/2nd/3rd Weight Sex Type Anes PTL Jen A1 A5 Name Clin Term Last Filed Vital Signs Vital Sign Reading Time Taken Comments Blood Pressure 152/99 02/11/2024 8:25 AM MAINTENANCE MECHANIC ELEVATORS Pulse 77 02/11/2024 8:23 AM MAINTENANCE MECHANIC ELEVATORS Temperature 36.6 C (97.8 F) 12/25/2023 9:11 AM CDT Respiratory Rate 18 02/11/2024 8:23 AM MAINTENANCE MECHANIC ELEVATORS Oxygen Saturation 99% 02/11/2024 8:23 AM MAINTENANCE MECHANIC ELEVATORS Inhaled Oxygen Concentration - - Weight 101.6 [...] Discontinued 07/30/2020 Medical Devices Implanted Type Area Corncob Pipes Assembler Device Identifier Shelf Expiration Date Model / Serial / Lot Marker Breast Biopsy Ultraclip Bard Biodur 108 Polyvinyl Alcohol Coil L12 Cm Od17 Ga Tissue 2 Trigger Permanent Ultrasound Visibility Rigid Needle Interwoven Sterile Disposable [place] - [id number] - [id number] Implanted:Qty: 1 on 04/16/2017 at [facility] Breast Right: Breast Bard Peripheral Vascular 09/20/2019 [id number] / [id number] / Procedures Procedure Name Priority Date/Time Associated Diagnosis Comments EGFR Routine 11/06/2023 7:08 AM CDT Mixed hyperlipidemia LIPID PANEL Routine 11/06/2023 7:08 AM CDT Mixed hyperlipidemia SCREENING MAMMOGRAM BILATERAL W JUAN C Schedule Routine, Read Routine (OP Routine) 05/02/2023 8:38 AM MAINTENANCE MECHANIC ELEVATORS Screening mammogram, encounter for COLONOSCOPY 07/30/2020 7:45 [...] Fi nal Result MORELIA MONTALVO (JOSE) 1 [facility] Department [place] [address] * (ABNORMAL) Lipid panel (11/06/2023 7:08 AM [...] Fi nal Result MORELIA MONTALVO (JOSE 1 [facility] Department [place] [address] * Screening Mammogram Bilateral W Juan C (05/02/2023 8:38 AM MAINTENANCE MECHANIC ELEVATORS) Anatomical Region Laterality Modality Breast Bilateral Mammography [...] Gallo MD - 07/30/2020 7:45 AM CDT [facility] Patient Name: Iesha Leon Procedure Date: 07/30/2020 7:45 AM Date of : 1970 Admit Type: Outpatient Age: 49 Gender: Female Attending MD: Hayden Gallo M.D. Room: [facility] ENDOSCOPY ROOM 1 Note Status: [...] under direct vision. The Pediatric Colonoscope PCF-H190L [id number] was introducedthrough the anus and advanced to [...] 7:45 AM Procedure Code(s): --- Professional --- 00503, Colonoscopy, flexible; with biopsy, single or multiple Diagnosis Code(s): --- Professional --- K64.8, Other hemorrhoids K63.89, Other specified diseases of intestine R10.31, Right lower quadrant pain K92.1, Melena (includes Hematochezia) K57.30, Diverticulosis of large intestine without perforation orabscess without bleeding R93.3, Abnormal findings on diagnostic imaging of other parts of digestive tract CPT copyright 2019 [employer]. All rights reserved. The codes documented in this report are preliminary and upon fall internship reviewmay be revised to meet current compliance requirements. Recognized by the [place] [employer] for promoting quality in endoscopy Hayden Gallo MD ENDOSCOPY PROCEDURES Final Result from Last 3 Months or Most Recently Relevant to Health Maintenance [place] [address] [facility] [place] [address] [facility] CHOICE PLUS [facility] CHO[facility] PLUS Advance Directives For more information, please contact: [phone] * Full Code (Latest Code Status on File) Date Activated Date Inactivated Comments 07/30/2020 7:50 AM 07/30/2020 1:43 PM * Full Code Date Activated Date Inactivated Comments 07/30/2020 7:50 AM 07/30/2020 7:50 AM Care Teams Reimbursement Counselor Relationship Specialty Start Date End Date Angelito Carrero MD PCP - General 09/27/12
--- OUTSIDE RECORDS SUMMARY | 2024-09-02 13:00 | XMS_ITS | Referral Summary ---
Author Organization [facility] Address [address] [place] [id number] Care Team Providers Care Platform Material Handler Manager Name Role Phone Angelito Carrero MD Primary Care Provider Encounters Date Type Department Care Team Description 08/22/2024 Orders Only [facility] Primary Care at [address] [phone] Angelito Carrero MD Skin lesion of face (Primary Dx) 08/22/2024 Orders Only [facility] Primary Care at [address] [phone] Angelito Carrero MD 08/19/2024 Telephone [facility] Primary Care at [address] [phone] Angelito Carrero MD Referral Request 08/11/2024 Orders Only [facility] Primary Care at [address] [phone] Angelito Carrero MD from Last 3 Months [...] (07/26/2020): Added automatically from request for surgery [id number] Colonic mass 07/26/2020 Overview (07/26/2020): Added automatically from request for surgery [id number] BMI 35.0-35.9,adult 02/27/2017 Mixed hyperlipidemia 01/23/2017 Herniated [...] (07/26/2020): Added automatically from request for surgery [id number] Abdominal pain 07/26/2020 02/09/2021 Overview (07/26/2020): Added automatically from request for surgery [id number] Acute URI 02/27/2017 11/01/2018 Assessment & Plan (02/27/2017 9:55 AM OFFICE SUPPORT ASSOCIATE): Advised patient is likely be more of a viral URI at this time considering negative testing in office today and certainly with clinical examination however I did go ahead and send off a Z-Bennie for her to start only on a as needed basis if in the event symptoms seem to worsen come Thursday or certainly if they fail to improve with [id number] management was advised office today including salt [...] on file Legal Sex Female 11:52 PM OFFICE SUPPORT ASSOCIATE Gender Identity Female 12/06/2019 9:36 AM CDT Sexual Orientation Not on file Last Filed Vital Signs Vital Sign Reading Time Taken Comments Blood Pressure 152/99 02/11/2024 8:25 AM OFFICE SUPPORT ASSOCIATE Pulse 77 02/11/2024 8:23 AM OFFICE SUPPORT ASSOCIATE Temperature 36.6 C (97.8 F) 12/25/2023 9:11 AM CDT Respiratory Rate 18 02/11/2024 8:23 AM OFFICE SUPPORT ASSOCIATE Oxygen Saturation 99% 02/11/2024 8:23 AM OFFICE SUPPORT ASSOCIATE Inhaled Oxygen Concentration - - Weight 101.6 kg (224 lb) 12/25/2023 9:11 AM CDT Height 160 cm (5' 3) 12/25/2023 9:11 AM CDT Body Mass Index 39.68 12/25/2023 9:11 AM CDT Plan of Treatment Not on file Medical Devices Implanted Type Area Drier And Pulverizer Tender Device Identifier Shelf Expiration Date Model / Serial / Lot Marker Breast Biopsy Ultraclip Bard Biodur 108 Polyvinyl Alcohol Coil L12 Cm Od17 Ga Tissue 2 Trigger Permanent Ultrasound Visibility Rigid Needle Interwoven Sterile Disposable Rossiter - [id number] - [id number] Implanted:Qty: 1 on 04/16/2017 at [facility] Breast Right: Breast Bard Peripheral Vascular 09/20/2019 [id number] / [id number] / Procedures Procedure Name Priority Date/Time Associated Diagnosis Comments EGFR Routine 11/06/2023 7:08 AM CDT Mixed hyperlipidemia LIPID PANEL Routine 11/06/2023 7:08 AM CDT Mixed hyperlipidemia SCREENING MAMMOGRAM BILATERAL W JUAN C Schedule Routine, Read Routine (OP Routine) 05/02/2023 8:38 AM OFFICE SUPPORT ASSOCIATE Screening mammogram, encounter for COLONOSCOPY 07/30/2020 7:45 [...] BLOOD ORDERABLES Fi nal Result MORELIA MONTALVO [place] 1 [facility] Department [place] [address] * (ABNORMAL) Lipid panel (11/06/2023 [...] Fi nal Result MORELIA MONTALVO (JOSE) 1 [facility] Department of Laboratories [place], [place] [id number] * Screening Mammogram Bilateral W Juan C (05/02/2023 8:38 AM OFFICE SUPPORT ASSOCIATE) Anatomical Region Laterality Modality Breast Bilateral Mammography [...] Gallo MD - 07/30/2020 7:45 AM CDT [facility] Patient Name: Iesha Leon Procedure Date: 07/30/2020 7:45 AM Date of : 1970 Admit Type: Outpatient Age: 49 Gender: Female Attending MD: Hayden Gallo M.D. Room: [facility] ENDOSCOPY ROOM 1 Note Status: Finalized Patient [...] under direct vision. The Pediatric Colonoscope [id number] was introducedthrough the anus and advanced to [...] 7:45 AM Procedure Code(s): --- Professional --- 61379, Colonoscopy, flexible; with biopsy, single or multiple Diagnosis Code(s): --- Professional --- K64.8, Other hemorrhoids K63.89, Other specified diseases of intestine R10.31, Right lower quadrant pain K92.1, Melena (includes Hematochezia) K57.30, Diverticulosis of large intestine without perforation orabscess without bleeding R93.3, Abnormal findings on diagnostic imaging of other parts of digestive tract CPT copyright 2019 [employer]. All rights reserved. The codes documented in this report are preliminary and upon taffy puller reviewmay be revised to meet current compliance requirements. Recognized by the [place] [employer] for promoting quality in endoscopy Hayden Gallo MD ENDOSCOPY PROCEDURES Final Result from Last 3 Months or Most Recently Relevant to Health Maintenance Insurance [facility] CHOICE PLUS [facility] CHOICE PLUS [facility] CHOICE PLUS Advance Directives For more information, please contact: [phone] * Full Code (Latest Code Status on File) Date Activated Date Inactivated Comments 07/30/2020 7:50 AM 07/30/2020 1:43 PM * Full Code Date Activated Date Inactivated Comments 07/30/2020 7:50 AM 07/30/2020 7:50 AM Care Teams Platform Material Handler Manager Relationship Specialty Start Date End Date Angeliot Carrero MD PCP - General 09/27/12
--- OUTSIDE RECORDS SUMMARY | 2024-09-02 13:00 | XMS_ITS | Clinical Summary ---
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
--- NOTE | 2024-09-02 13:08 | ED_ITS ---
HPI - Female Genitourinary General Chief complaint: Urogenital-Female Stated complaint: L sided flank pain Time Seen by Provider: 09/02/24 12:29 History of Present Illness HPI Narrative: 53 y/o F presents to the ED for left flank pain that started this morning. Pain radiates to the front. She is endorsing nausea. Denies vomiting, diarrhea, fever, chills. Denies dysuria or hematuria. Denies hx of kidney stones, but does report a hx of kidney blockages. States she has had to have ureteral stents placed previously. Her last stent was about 3-[address] Isaac. Related Data Allergies Allergy/AdvReac Type Severity Reaction Status Date / Time Sulfa (Sulfonamide Allergy Unknown SKIN RASH Verified 03/01/18 21:35 Antibiotics) Review of Systems 2 Review of Systems: All systems reviewed & are unremarkable except as noted in HPI and below Exam 2 Narrative: GENERAL: Appears uncomfortable, writhing in exam bed HEAD: Normocephalic, atraumatic. EYES: EOMI. ENT: Nares clear, no rhinorrhea or epistaxis. Mucous membranes moist. NECK: Supple. CHEST: Clear to auscultation. No respiratory distress. HEART: Regular rate and rhythm. No murmur heard. Normal peripheral pulses. ABDOMEN: Normoactive bowel sounds. Abdomen soft with tenderness to the left lower quadrant and left CVA region. No rebound or rigidity. EXTREMITIES: Normal range of motion. No edema. SKIN: Warm, dry, no rash. NEURO: No focal deficits. Alert and oriented x3 Course Vital Signs Vital signs: Vital Signs Temperature 97.3 F L 09/02/24 12:04 Pulse Rate 79 09/02/24 12:04 Respiratory Rate 16 09/02/24 12:04 Blood Pressure 152/102 H 09/02/24 12:04 Pulse Oximetry 99 09/02/24 12:04 Oxygen Delivery Room Air 09/02/24 12:04 Temperature 97.3 F L 09/02/24 12:04 Pulse Rate 69 09/02/24 14:55 Respiratory Rate 16 09/02/24 14:55 Blood Pressure 155/89 H 09/02/24 14:55 Pulse Oximetry 99 09/02/24 14:55 Oxygen Delivery Room Air 09/02/24 12:04 MDM - Female Genitourinary MDM Narrative Medical decision making narrative: 53-year-old female with reported history of ureteral blockages in prior to all stent placement presents to the emergency department for left flank and left lower quadrant abdominal pain that started today. Vitals with elevated blood pressure. Patient is uncomfortable upon arrival to the ED. She is given morphine by EMS and 0.5 mg of Dilaudid and Zofran upon arrival. Exam is notable for the above. CBC without leukocytosis or anemia. Chemistries show stable creatinine of 0.94 normal BUN 15. Bicarb is 19 anion gap, likely dehydration, fluids provided. UA with 51-100 RBCs, no white blood cells or bacteria. Lipase is within normal limits. CT abdomen pelvis shows moderate to severe left hydroureteronephrosis with transition point in the left distal ureter right before the ureteropelvic junction with no discrete calculus seen. Patient and family at bedside updated on results. Pt is now resting comfortably in exam bed, reading a children's book to her grandchild. I discussed the case with Urology. Dr. Palacio came down to evaluate the patient. Advises shared decision making, states patient can either be admitted for observation pain control with possible stent placement verses discharged home with close outpatient follow-up and pain medications. I discussed these options with the patient and family at bedside. The patient is requesting to be discharged home. She agrees to follow-up closely with her urologist and was given strict ED return precautions. She and her family are agreeable with the plan and verbalized understanding. Patient was given Toradol prior to discharge. Discharged in stable condition. Lab Data 09/02/24 14:12 09/02/24 14:12 Labs: Lab Results 09/02/24 09/02/24 Range/Units 12:30 14:12 WBC 6.2 (4.5-10.0) K/mm3 RBC 4.45 (4.2-5.4) M/mm3 Hgb 13.0 (12.0-15.0) g/dL Hct 39.9 (37.0-47.0) % MCV 89.7 (80-100) fl MCH 29.2 (26-34) pg MCHC 32.6 (32-36) g/dl RDW 13.6 (11.5-14.5) % Plt Count 169 (150-375) k/mm3 MPV 10.6 H (7.4-10.4) fl Immature Gran % (Auto) 0.2 (0-0.5) % Neut % (Auto) 67.7 (45.5-73.1) % Lymph % (Auto) 21.3 (18.3-44.2) % [place] % (Auto) 7.4 (2.6-8.5) % Eos % (Auto) 3.1 (0-4.4) % Baso % (Auto) 0.3 (0.2-1.2) % Lymph # (Auto) 1.32 (0.9-3.2) K/mm3 [place] # (Auto) 0.5 (0.1-0.6) K/mm3 Eos # (Auto) 0.2 (0-0.3) K/mm3 Baso # (Auto) 0.0 (0.0-0.1) K/mm3 Abs Immat Gran (auto) 0.01 (0.00-0.031) K/mm3 Absolute Neuts (auto) 4.2 (1.3-6.7) K/mm3 Absolute Nucleated RBC 0.000 (0.0-0.012) K/mm3 Nucleated RBC % 0.0 (0.0-0.2) % Sodium 141 (137-145) mmol/L Potassium 3.5 (3.4-5.0) mmol/L Chloride 113 H (98-107) mmol/L Carbon Dioxide 19 L (22-30) mmol/L Anion Gap 9 (4-12) mmol/L BUN 15 (7-17) mg/dL Creatinine 0.94 (0.7-1.0) mg/dL Estim Creat Clear Calc 69 ml/min Estimated GFR > 60 (59 - ) Glucose 99 (65-110) mg/dL Calcium 8.5 (8.4-10.2) mg/dL Total Bilirubin 1.1 (0.2-1.3) mg/dL AST 28 (14-36) U/L ALT 27 (6-35) U/L Alkaline Phosphatase 65 (38-126) U/L Total Protein 7.4 (6.3-8.2) g/dL Albumin 3.8 (3.5-5.1) g/dL Lipase 148 (23-300) U/L Urine Color Yellow (Yellow) Urine Appearance Clear (Clear) Urine pH 7.0 (5.0-9.0) Ur Specific [place] 1.016 (1.001-1.035) Urine Protein Negative (Negative) mg/dL Urine Glucose (UA) Negative (Negative) mg/dL Urine Ketones Negative (Negative) mg/dL Ur Blood (Man) 2+ H (Negative) Urine Nitrate Negative (Negative) Urine Bilirubin Negative (Negative) Urine Urobilinogen 1.0 (<2.0) mg/dL Leukocyte Esterase Rfl Negative (Negative) KEMAR/UL Urine RBC 51-100 H (0-2) /hpf Urine WBC 0-5 (0-3) /hpf Ur Squamous Epith Cells None seen (Few) /hpf Urine Bacteria None seen /hpf Urine Casts 0-2 Discharge Plan Discharge Clinical Impression: Stricture of left ureter Hematuria Qualifiers: Hematuria type: unspecified type Qualified Code(s): R31.9 - Hematuria, unspecified Patient Disposition: Home Condition: Stable Instructions: Antibiotic Form, Hematuria (ED), Hydronephrosis (ED) Additional Instructions: You were evaluated in the emergency department for left flank and abdominal pain. You were found to have narrowing of your ureter that is causing urine to back up into your ureter and kidney. Your urine does not appear to be infected you do not have a kidney stone on the CT scan. We discussed having the stay in the hospital versus following up outpatient any requesting to be discharged home. Please follow-up closely with your urologist. Take pain medications as needed. Return to the emergency department if you develop a fever, you are unable to tolerate food or fluids, develop significantly worsening pain, or other concerning symptoms. Patient Language: Cypriot Prescriptions: New hydrocodone-acetaminophen 5-325 mg tablet 1 tablet PO Q8H PRN (Reason: pain) Qty: 14 0RF ondansetron 4 mg tablet,disintegrating 4 mg PO Q8H Qty: 14 0RF Follow-up/Referrals: Magan,Angelito Bailon MD [Primary Care Provider] -
[2024-09-02] MEDS: SODIUM CHLORIDE 0.9% IV 1,000 ML 999 ML IV CONT (13:13)
[2024-09-02] MEDS: ONDANSETRON INJ 4 MG/2 ML VIAL IV PUSH (13:15)
[2024-09-02] MEDS: HYDROmorphone HCL INJ (*CRX) 2 MG/ML VIAL 0.5 MG IV PUSH (13:16)
[2024-09-02 14:32] LABS: Hematocrit 39.9 % (37.0-47.0); Hemoglobin 13.0 g/dL (12.0-15.0); Immature Granulocyte Percent A 0.2 % (0-0.5); Lymphocytes Absolute Auto 1.32 K/mm3 (0.9-3.2); Mean Corpuscular HGB Conc 32.6 g/dl (32-36); Mean Corpuscular Hemoglobin 29.2 pg (26-34); Mean Corpuscular Volume 89.7 fl (80-100); Nucleated Red Blood Cells Absolute Auto 0.000 K/mm3 (0.0-0.012); Nucleated Red Blood Cells Perc 0.0 % (0.0-0.2); Platelet Count Result 169 k/mm3 (150-375); Red Blood Count 4.45 M/mm3 (4.2-5.4); White Blood Count 6.2 K/mm3 (4.5-10.0)
[2024-09-02 14:40] LABS: Alanine Aminotransferase 27 U/L (6-35); Albumin Level 3.8 g/dL (3.5-5.1); Alkaline Phosphatase 65 U/L (38-126); Anion Gap 9 mmol/L (4-12); Aspartate Amino Transferase 28 U/L (14-36); Bilirubin,Total 1.1 mg/dL (0.2-1.3); Blood Urea Nitrogen 15 mg/dL (7-17); Calcium 8.5 mg/dL (8.4-10.2); Carbon Dioxide 19 mmol/L (22-30); Chloride 113 mmol/L (98-107); Estimated CRCL calculation 69 ml/min; Estimated Glomerular Filt Rate > 60; Glucose 99 mg/dL (65-110); Lipase 148 U/L (23-300); Potassium 3.5 mmol/L (3.4-5.0); Sodium 141 mmol/L (137-145); Total Protein 7.4 g/dL (6.3-8.2)
[2024-09-02 14:55] VITALS: BP 155/89; PULSE 69; RESP 16; O2SAT 99
--- NOTE | 2024-09-02 16:36 | P.CONUR_ITS ---
Assessment and Plan Assessment and plan Plan -wbc and cr wnl -ua unremarkable other than blood -CT AP shows Moderate to severe left hydroureteronephrosis with transition point in the left distal ureter, right before ureteropelvic junction. No discrete calculus seen. Urology Consult Note HPI Date Seen: 09/02/24 Primary Care Provider: Angelito Carrero, Consult Narrative Narrative: Iesha Leon is a 53 year old female presents to the ED for left flank pain that started this morning. Pain radiates to the front. She is endorsing nausea. Denies vomiting, diarrhea, fever, chills. Denies dysuria or hematuria. Denies hx of kidney stones, but does report a hx of kidney blockages. States she has had to have ureteral stents placed previously. Her last stent was about 3-[address] Isaac. Review of Systems 2 Review of Systems: All systems reviewed & are unremarkable except as noted in HPI and below Meds Home Medications and Allergies Allergies Allergy/AdvReac Type Severity Reaction Status Date / Time Sulfa (Sulfonamide Allergy Unknown SKIN RASH Verified 03/01/18 21:35 Antibiotics) Vital Signs Vital Signs - 24 hr 09/02/24 12:04 09/02/24 14:55 Temperature 97.3 F L Pulse Rate 79 69 Respiratory Rate 16 16 Blood Pressure 152/102 H 155/89 H Pulse Oximetry 99 99 Oxygen Delivery Room Air Results Labs 09/02/24 14:12 09/02/24 14:12 Labs: Short CBC 09/02/24 Range/Units 14:12 WBC 6.2 (4.5-10.0) K/mm3 Hgb 13.0 (12.0-15.0) g/dL Hct 39.9 (37.0-47.0) % Plt Count 169 (150-375) k/mm3 BMP 09/02/24 14:12 Sodium 141 Potassium 3.5 Chloride 113 H Carbon Dioxide 19 L BUN 15 Creatinine 0.94 Glucose 99 Calcium 8.5 Liver Function 09/02/24 Range/Units 14:12 Total Bilirubin 1.1 (0.2-1.3) mg/dL AST 28 (14-36) U/L ALT 27 (6-35) U/L Alkaline Phosphatase 65 (38-126) U/L Albumin 3.8 (3.5-5.1) g/dL Urine 09/02/24 Range/Units 12:30 Urine Color Yellow (Yellow) Urine Appearance Clear (Clear) Urine pH 7.0 (5.0-9.0) Ur Specific [place] 1.016 (1.001-1.035) Urine Protein Negative (Negative) mg/dL Urine Glucose (UA) Negative (Negative) mg/dL
--- NOTE | 2024-09-02 16:57 | P.CONUR_ITS ---
Assessment and Plan Assessment and plan (1) Hydronephrosis, left: Code(s): N13.30 - Unspecified hydronephrosis Status: Acute (2) Ureteral stricture, left: Code(s): N13.5 - Crossing vessel and stricture of ureter without hydronephrosis Status: Acute Plan This is a long-term problem dating back to at least 2010. Unclear why is exacerbated today given the fact she has had no issues since 2019. Her pain is subsiding. She is nontoxic. No symptoms of infection. Normal creatinine. No fever. I offered her several options. I offered admission with observation and possible stenting versus renal scan. This renal scan can likely not be done until Thursday. I offered pain management with outpatient workup including renal scan with possible retrograde and ureteroscopy. Since her pain is controlled she is leaning towards going home. Discussed with the ER provider Urology Consult Note HPI Date Seen: 09/02/24 Primary Care Provider: Angelito Carrero, Consult Narrative Narrative: Iesha Leon is a 53 year old female she has a known history of left ureteral stricture. She has had this since at least 2010. She was managed by urologist at [facility] several years ago and he placed a stent. She was also seen by my partner Dr. Isaac. He placed a stent in 2019. She has not had any pain or interventions on that left kidney since 2019. She had acute onset of left flank pain today at 11:00 a.m.. This prompted evaluation in the emergency room. She was found to have moderate hydronephrosis without stone transition point in the very distal ureter. She now rates her pain as a 3/10 she does not know why after so many years she has had recurrent pain today. She has no symptoms of infection. No visible in the urine. No fevers or chills. She has a normal creatinine. There was some notes in the office chart that stated some point she had a normal renal scan and even no hydronephrosis back in 2019. I discussed options with her. Her pain is now controlled. We discussed going home on pain medicine with outpatient evaluation of the formal renal scan and possibly retrograde pyelogram ureteroscopy. We discussed admission with observation possible ureteral stent. She is thinking about these options but is leaning towards going home Review of Systems 2 Review of Systems: All systems reviewed & are unremarkable except as noted in HPI and below Meds Home Medications and Allergies Allergies Allergy/AdvReac Type Severity Reaction Status Date / Time Sulfa (Sulfonamide Allergy Unknown SKIN RASH Verified 03/01/18 21:35 Antibiotics) Vital Signs Vital Signs - 24 hr 09/02/24 12:04 09/02/24 14:55 Temperature 97.3 F L Pulse Rate 79 69 Respiratory Rate 16 16 Blood Pressure 152/102 H 155/89 H Pulse Oximetry 99 99 Oxygen Delivery Room Air Exam 2 Const: General: cooperative, healthy appearing and obese O rientation/consciousness: patient oriented x3 Limitations: no limitations HENMT: Head: normal to inspection Eyes: General: appearance normal, both eyes and all related structures Chest: Chest palpation & inspection: normal inspection of the chest Resp: Effort & Inspection: normal respiratory effort and able to speak in complete sentences GI: Inspection: normal to inspection Back/Spine/Pelvis: Back: no CVA tenderness Skin: General skin exam: normal color Neuro: General: patient oriented x3 and moves all extremities Extrem: General: normal to inspection and full ROM Psych: Appearance: grossly normal Results Labs 09/02/24 14:12 09/02/24 14:12 Labs: Short CBC 09/02/24 Range/Units 14:12 WBC 6.2 (4.5-10.0) K/mm3 Hgb 13.0 (12.0-15.0) g/dL Hct 39.9 (37.0-47.0) % Plt Count 169 (150-375) k/mm3 BMP 09/02/24 14:12 Sodium 141 Potassium 3.5 Chloride 113 H Carbon Dioxide 19 L BUN 15 Creatinine 0.94 Glucose 99 Calcium 8.5 Liver Function 09/02/24 Range/Units 14:12 Total Bilirubin 1.1 (0.2-1.3) mg/dL AST 28 (14-36) U/L ALT 27 (6-35) U/L Alkaline Phosphatase 65 (38-126) U/L Albumin 3.8 (3.5-5.1) g/dL Urine 09/02/24 Range/Units 12:30 Urine Color Yellow (Yellow) Urine Appearance Clear (Clear) Urine pH 7.0 (5.0-9.0) Ur Specific [place] 1.016 (1.001-1.035) Urine Protein Negative (Negative) mg/dL Urine Glucose (UA) Negative (Negative) mg/dL Imaging My impression: Left hydronephrosis with with transition point in the distal ureter
[2024-09-02] MEDS: KETOROLAC 30 MG/ML VIAL (*BKC) IV PUSH (17:19)
[2024-09-02 17:20] VITALS: BP 147/98; PULSE 70; RESP 16; O2SAT 96
== END 2024-09-02 17:20 | disposition home or self-care (01) ==
PROVIDERS: Emergency Medicine; Emergency Provider Physician Assistant; PCP Internal Medicine
DX: N13.1 Hydronephrosis with ureteral stricture, not elsewhere classified (principal)
CPT/HCPCS: 36415; 74176; 80053; 81001; 83690; 85025; 96361; 96374; 96375; 99284; J1171; J1885; J2405; J7030

== ENCOUNTER 2024-09-19 13:06 | Outpatient (CLI) | payer OTHER, SELFPAY ==
--- NOTE | ~2024-09-19 | NM_ITS ---
EXAMINATION: NM lasix renal scan DATE: 09/19/2024 15:37 INDICATION: Hydronephrosis TECHNIQUE: 7.7 mCi Tc-99m MAG3 was administered IV. 40 mg furosemide was administered IV immediately afterward. The patient was scanned in the supine position. A posterior abdominal radionuclide angiog ernestine was obtained. A subsequent time course of static images of the kidneys, ureters, and bladder was obtained. COMPARISON: CT dated 09/02/2024 and 03/01/2018 and Lasix renal scan dated 10/03/2015 FINDINGS: The posterior abdominal radionuclide angiogram and sequential static images show normal size, positio n, and morphology of the kidneys. Peak renal parenchymal uptake was 5.5 min in left kidney and 3.5 mi n in right kidney (normal peak 3-5 minutes). The relative early renal uptake was 55% on the left and 45% on the right (<40% is abnormal). No abnormalities of the ureters or bladder are seen. Specifica lly no asymmetric increased activity along the course of the left ureter corresponding to the hydrour eter identified on the prior CT. T1/2 for clearance of activity from the left kidney and proximal collecting system was 15 minutes. T1/2 for clearance of activity from the right kidney and proximal collecting system was 7 minutes. Notes on interpretation: T1/2 <10 minutes is normal, 10-15 minutes is low grade obstruction of questi onable clinical significance, 15-20 minutes is partial obstruction that is likely clinically signific ant, >20 minutes is high grade obstruction. Note that false positives may be seen with supine positio juwan, dehydration, severely dilated nonobstructed kidney, atonic collecting system, poor renal functi on, and chronic furosemide use. IMPRESSION: 1. Symmetric kidney function. 2. No significant interval change in mild left hydronephrosis with mild delay in activity clearance from the left kidney consistent with low-grade obstruction of questionable clinical significance. Reviewed, dictated and finalized at location A. IMPRESSION: 1. Symmetric kidney function. 2. No significant interval change in mild left hydronephrosis with mild delay in activity clearance from the left kidney consistent with low-grade obstructio n of questionable clinical significance.
--- OUTSIDE RECORDS SUMMARY | 2024-09-19 13:11 | XMS_ITS | Clinical Summary ---
Author Organization [facility] [employer] Address [address] [place] [address] Care Team Providers Care Warp Starter Name Role Phone Unavailable Primary Care Provider Unavailabl e Source Comments [facility] [employer],non-owned Affiliates and Associated Physician Practices is amultiple site organization consisting of ambulatory clinics and hospital sitesin [place], [place], [place] and [place]. This disclosure is being madepursuant to the Care Everywhere program and may not contain all information available regarding this patient. Last updated 17.[facility] [employer] Allergies Active Allergy Reactions Criticality Noted Date Comments Sulfa Drugs Nausea and/or Vomiting Medium 02/27/2015 Medications * Be aware that medications may not be up to date on this document. Alwaysverify current medications with the patient. phentermine (IONAMINE) 30 MG capsule TK 1 C PO QAM 5 06/22/2017 Acti ve QSYMIA 15-92 MG capsule TK 1 C PO D 5 06/22/2017 Active methylPREDNISol one (MEDROL DOSEPAK) 4 MG tablet Take by mouth as directed 21 tablet 07/09/2017 Active Active Problems No known active problems Social History Tobacco Use Types Packs/Day Years Used Date Smoking Tobacco: Never Assessed Comments Unknown Sex and Gender Information Value Date Recorded Sex Assigned at Not on file Legal Sex Female 3:16 PM CDT Gender Identity Not on file Sexual Orientation Not on file Last Filed Vital Signs Vital Sign Reading Time Taken Comments Blood Pressure - - Pulse - - Temperature - - Respiratory Rate - - Oxygen Saturation - - Inhaled Oxygen Concentration - - Weight 92.5 kg (204 lb) 07/09/2017 1:51 PM CDT Height 162.6 cm (5' 4) 07/09/2017 1:51 PM CDT Body Mass Index 35.02 07/09/2017 1:51 PM CDT Plan of Treatment Health Maintenance Due Date Last Done Comments COLOGUARD (AGES 45-75) - COL ON CA SCREENING 1968 COLON MONITORING 1968 COLONOSCOPY - COLON CA SCREENING 1968 CT COLONOGRAPHY - COLON CA SCREENING 1970 Colorectal Cancer Screening 1968 FIT - COLON CA SCREENING 1968 FLEX SIG - COLON CA SCREENING 1968 LIPID TESTING 1970 MAMMOGRAM 1968 HIV SCREENING 09/23/1983 HEPATITIS C SCREENING 09/18/1986 DTAP/TDAP/TD VACCINES (1 - Tdap) 09/23/1987 HEPATITIS B VACCINE (1 of 3 - 19+ 3-dose series) 09/23/1987 SCREENING FOR DIABETES 07/09/2017 PNEUMOCOCCAL VACCINE 50+ (1 of 1 - PCV) 2018 ZOSTER VACCINE (1 of 2) 2018 COVID-19 VACCINE (1 - 2023-2 5 season) 2023 DEPRESSION SCREENING 02/24/2024 INFLUENZA VACCINE (#1) 2024 HIB VACCINE Aged Out No longer eligi ble based on patient's age to complete this topic HPV VACCINE Aged Out No longer eligi ble based on patient's age to complete this topic MENINGOCOCCAL (Group B) VACC INE SHARED DECISION-MAKING Aged Out No longer eligibl e based on patient's age to complete this topic MENINGOCOCCAL GROUPS A/C/Y/W VACCINE Aged Out No longer eligible b ased on patient's age to complete this [place] [place] [address] [facility]
--- OUTSIDE RECORDS SUMMARY | 2024-09-19 13:11 | XMS_ITS | Clinical Summary ---
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
--- OUTSIDE RECORDS SUMMARY | 2024-09-19 13:11 | XMS_ITS | Clinical Summary ---
Author Organization [facility] Address [address] [place] [address] Care Team Providers Care Textile Examiner Name Role Phone Angelito Carrero MD Primary [...] (07/26/2020): Added automatically from request for surgery [id number] Colonic mass 07/26/2020 Overview (07/26/2020): Added automatically from request for surgery [id number] BMI 35.0-35.9,adult 02/27/2017 Mixed hyperlipidemia 01/23/2017 Herniated [...] (07/26/2020): Added automatically from request for surgery [id number] Abdominal pain 07/26/2020 02/09/2021 Overview (07/26/2020): Added automatically from request for surgery [id number] Acute URI 02/27/2017 11/01/2018 Assessment & Plan (02/27/2017 9:55 AM RESIDENT PHYSICIAN IN RADIOLOGY): Advised patient is likely be more of a viral URI at this time considering negative testing in office today and certainly with clinical examination however I did go ahead and send off a Z-Bennie for her to start only on a as needed basis if in the event symptoms seem to worsen come Thursday or certainly if they fail to improve with skyq-mox-kvytefy management was advised office today including salt water gargles, Flonase nasal spray, antihistamines, increasing fluids and rest. Close monitoring outpatient follow-up as needed regarding condition Class 2 obesity due to exces s calories without serious comorbidity with body mass index (BMI) of 35.0 to 35.9 in adult 01/23/201703/2020 Constipation 10/06/2014 12/03/2018 Encounters Date Type Department Care Team Description 09/02/2024 Orders Only [facility] Health Information Management [address] [place] [address] Angelito Carrero MD 08/22/2024 Orders Only [facility] Primary Care at [address] [place] [address] Angelito Carrero MD Skin lesion of face (Primary Dx) 08/22/2024 Orders Only [facility] Primary Care at [address] [place] [address] Angelito Carrero MD 08/19/2024 Telephone [facility] Primary Care at [address] [place] [phone] Angelito Carrero MD Referral Request 08/11/2024 Orders Only [facility] Primary Care at [address] [place] [phone] Angelito Carrero MD from Last 3 Months [...] on file Legal Sex Female 11:52 PM RESIDENT PHYSICIAN IN RADIOLOGY Gender Identity Female 12/06/2019 9:36 AM CDT Sexual Orientation Not on file Obstetrics History Para Term AB IAB SAB Ectopic Multiple Livin g Live Births 1 1 1 Date Outcome GA Total Labor Labor/2nd/3rd Weight Sex Type Anes PTL Jen A1 A5 Name Clin Term Last Filed Vital Signs Vital Sign Reading Time Taken Comments Blood Pressure 152/99 02/11/2024 8:25 AM RESIDENT PHYSICIAN IN RADIOLOGY Pulse 77 02/11/2024 8:23 AM RESIDENT PHYSICIAN IN RADIOLOGY Temperature 36.6 C (97.8 F) 12/25/2023 9:11 AM CDT Respiratory Rate 18 02/11/2024 8:23 AM RESIDENT PHYSICIAN IN RADIOLOGY Oxygen Saturation 99% 02/11/2024 8:23 AM RESIDENT PHYSICIAN IN RADIOLOGY Inhaled Oxygen Concentration - - Weight 101.6 [...] Discontinued 07/30/2020 Medical Devices Implanted Type Area Rand Maker Device Identifier Shelf Expiration Date Model / Serial / Lot Marker Breast Biopsy Ultraclip Bard Biodur 108 Polyvinyl Alcohol Coil L12 Cm Od17 Ga Tissue 2 Trigger Permanent Ultrasound Visibility Rigid Needle Interwoven Sterile Disposable [place] - [id number] - [id number] Implanted:Qty: 1 on 04/16/2017 at [facility] Breast Right: Breast Bard Peripheral Vascular 09/20/2019 [id number] / [id number] / Procedures Procedure Name Priority Date/Time Associated Diagnosis Comments SCAN - LABS 09/02/2024 SCAN - RADIOLOGY/IMAGING 09/02/2024 EGFR Routine 11/06/2023 7:08 AM CDT Mixed hyperlipidemia LIPID PANEL Routine 11/06/2023 7:08 AM CDT Mixed hyperlipidemia SCREENING MAMMOGRAM BILATERAL W JUAN C Schedule Routine, Read Routine (OP Routine) 05/02/2023 8:38 AM RESIDENT PHYSICIAN IN RADIOLOGY Screening mammogram, encounter for COLONOSCOPY 07/30/2020 7:45 AM CDT from Last 3 Months or Most Recently Relevant to Health Maintenance Results * SCAN - RADIOLOGY/IMAGING (09/02/2024) Anatomical Region Laterality Modality Other Angelito Carrero MD Final R esult * SCAN - LABS (09/02/2024) us Provider Scanning Final Result * (ABNORMAL) eGFR (11/06/2023 7:08 AM CDT) [...] BLOOD ORDERABLES Fi nal Result MORELIA MONTALVO (STEDMAN) 1 [facility] [place] [address] * (ABNORMAL) Lipid panel (11/06/2023 7:08 AM [...] BLOOD ORDERABLES Fi nal Result MORELIA MONTALVO (STEDMAN) [address] [facility] [place] [address] * Screening Mammogram Bilateral W Juan C (05/02/2023 8:38 AM RESIDENT PHYSICIAN IN RADIOLOGY) Anatomical Region Laterality Modality Breast Bilateral Mammography [...] Gallo MD - 07/30/2020 7:45 AM CDT [facility] Patient Name: Iesha Leon Procedure Date: 07/30/2020 7:45 AM Date of : 1970 Admit Type: Outpatient Age: 49 Gender: Female Attending MD: Hayden Gallo M.D. Room: [facility] ENDOSCOPY ROOM 1 Note Status: [...] under direct vision. The Pediatric Colonoscope PCF-H190L [id number] was introducedthrough the anus and advanced to [...] 7:45 AM Procedure Code(s): --- Professional --- 43720, Colonoscopy, flexible; with biopsy, single or multiple Diagnosis Code(s): --- Professional --- K64.8, Other hemorrhoids K63.89, Other specified diseases of intestine R10.31, Right lower quadrant pain K92.1, Melena (includes Hematochezia) K57.30, Diverticulosis of large intestine without perforation orabscess without bleeding R93.3, Abnormal findings on diagnostic imaging of other parts of digestive tract CPT copyright 2019 [employer]. All rights reserved. The codes documented in this report are preliminary and upon medical records coder reviewmay be revised to meet current compliance requirements. Recognized by the [place] [employer] for promoting quality in endoscopy Hayden Gallo MD ENDOSCOPY PROCEDURES Final Result from Last 3 Months or Most Recently Relevant to Health Maintenance Insurance [facility] CHOICE PLUS [facility] CHO[facility] PLUS [facility] CHO[facility] PLUS Advance Directives For more information, please contact: [phone] * Full Code (Latest Code Status on File) Date Activated Date Inactivated Comments 07/30/2020 7:50 AM 07/30/2020 1:43 PM * Full Code Date Activated Date Inactivated Comments 07/30/2020 7:50 AM 07/30/2020 7:50 AM Care Teams Textile Examiner Relationship Specialty Start Date End Date Angelito Carrero MD PCP - General 09/27/12
--- OUTSIDE RECORDS SUMMARY | 2024-09-19 13:11 | XMS_ITS | Referral Summary ---
Author Organization [facility] Address [address] [place] [address] Care Team Providers Care Student Services Advisor Name Role Phone Angelito Carrero MD Primary Care Provider Encounters Date Type Department Care Team Description 09/02/2024 Orders Only [facility] Health Information Management [address] [place] [address] Angelito Carrero MD 08/22/2024 Orders Only [facility] Medical Group Primary Care at [address] [address] Angelito Carrero MD Skin lesion of face (Primary Dx) 08/22/2024 Orders Only [facility] Medical [facility] Primary Care at [address] [address] Angelito Carrero MD 08/19/2024 Telephone [facility] Medical Group Primary Care at [address] [phone] Angelito Carrero MD Referral Request 08/11/2024 Orders Only [facility] Medical [facility] Primary Care at [address] [phone] Angelito Carrero MD from Last 3 Months [...] (07/26/2020): Added automatically from request for surgery [id number] Colonic mass 07/26/2020 Overview (07/26/2020): Added automatically from request for surgery [id number] BMI 35.0-35.9,adult 02/27/2017 Mixed hyperlipidemia 01/23/2017 Herniated [...] (07/26/2020): Added automatically from request for surgery [id number] Abdominal pain 07/26/2020 02/09/2021 Overview (07/26/2020): Added automatically from request for surgery [id number] Acute URI 02/27/2017 11/01/2018 Assessment & Plan (02/27/2017 9:55 AM CREPE MAKER): Advised patient is likely be more of a viral URI at this time considering negative testing in office today and certainly with clinical examination however I did go ahead and send off a Z-Bennie for her to start only on a as needed basis if in the event symptoms seem to worsen come Thursday or certainly if they fail to improve with oafc-skg-mghlmax management was advised office today including salt [...] on file Legal Sex Female 11:52 PM CREPE MAKER Gender Identity Female 12/06/2019 9:36 AM CDT Sexual Orientation Not on file Last Filed Vital Signs Vital Sign Reading Time Taken Comments Blood Pressure 152/99 02/11/2024 8:25 AM CREPE MAKER Pulse 77 02/11/2024 8:23 AM CREPE MAKER Temperature 36.6 C (97.8 F) 12/25/2023 9:11 AM CDT Respiratory Rate 18 02/11/2024 8:23 AM CREPE MAKER Oxygen Saturation 99% 02/11/2024 8:23 AM CREPE MAKER Inhaled Oxygen Concentration - - Weight 101.6 kg (224 lb) 12/25/2023 9:11 AM CDT Height 160 cm (5' 3) 12/25/2023 9:11 AM CDT Body Mass Index 39.68 12/25/2023 9:11 AM CDT Plan of Treatment Not on file Medical Devices Implanted Type Area Human Resources Executive Assistant Device Identifier Shelf Expiration Date Model / Serial / Lot Marker Breast Biopsy Ultraclip Bard Biodur 108 Polyvinyl Alcohol Coil L12 Cm Od17 Ga Tissue 2 Trigger Permanent Ultrasound Visibility Rigid Needle Interwoven Sterile Disposable [place] - [id number] - [id number] Implanted:Qty: 1 on 04/16/2017 at [facility] Breast Right: Breast Bard Peripheral Vascular 09/20/2019 [id number] / [id number] / Procedures Procedure Name Priority Date/Time Associated Diagnosis Comments SCAN - LABS 09/02/2024 SCAN - RADIOLOGY/IMAGING 09/02/2024 EGFR Routine 11/06/2023 7:08 AM CDT Mixed hyperlipidemia LIPID PANEL Routine 11/06/2023 7:08 AM CDT Mixed hyperlipidemia SCREENING MAMMOGRAM BILATERAL W JUAN C Schedule Routine, Read Routine (OP Routine) 05/02/2023 8:38 AM CREPE MAKER Screening mammogram, encounter for COLONOSCOPY 07/30/2020 7:45 [...] LAB BLOOD ORDERABLES Fi nal Result MORELIA SELVIN (JOSE) 1 [facility] Department [place] [address] * (ABNORMAL) Lipid panel (11/06/2023 7:08 AM [...] 3. Hans Santacruz et al. EDGARDO Cardiol. 2020 June 23;5(5):540-548. doi: [email or web address].2020.0013 Current Interpretive Data was last revised on 2023. Non-HDL Cholesterol 163 mg/dL MORELIA CARRASCO) Comment: Interpretive Data Ages < or = [...] revised on 2017. Chol/HDL ratio 4 CASEY CARRASCO) Blood 11/06/2023 7:08 AM CDT 11/06/2023 8:10 AM CDT Narrative MORELIA MONTALVO (JOSE) - 11/06/2023 8:42 AM CDT Has the patient been fasting for 8 hours or more?->Yes Angelito Carrero MD LAB BLOOD ORDERABLES Fi nal Result MORELIA MONTALVO ([place]ONT[place]O) 1 [facility] Department [place] [address] * Screening Mammogram Bilateral W Juan C (05/02/2023 8:38 AM CREPE MAKER) Anatomical Region Laterality Modality Breast Bilateral Mammography [...] Gallo MD - 07/30/2020 7:45 AM CDT [facility] Patient Name: Iesha Leon Procedure Date: 07/30/2020 7:45 AM Date of : 1970 Admit Type: Outpatient Age: 49 Gender: Female Attending MD: Hayden Gallo M.D. Room: [facility] ENDOSCOPY ROOM 1 Note Status: Finalized Patient [...] under direct vision. The Pediatric Colonoscope PCF-H190L [id number] was introducedthrough the anus and advanced to [...] 7:45 AM Procedure Code(s): --- Professional --- 68857, Colonoscopy, flexible; with biopsy, single or multiple Diagnosis Code(s): --- Professional --- K64.8, Other hemorrhoids K63.89, Other specified diseases of intestine R10.31, Right lower quadrant pain K92.1, Melena (includes Hematochezia) K57.30, Diverticulosis of large intestine without perforation orabscess without bleeding R93.3, Abnormal findings on diagnostic imaging of other parts of digestive tract CPT copyright 2019 [employer]. All rights reserved. The codes documented in this report are preliminary and upon after school program assistant reviewmay be revised to meet current compliance requirements. Recognized by the [employer] for promoting quality in endoscopy Hayden Gallo MD ENDOSCOPY PROCEDURES Final Result from Last 3 Months or Most Recently Relevant to [place] [address] [facility]/PPO Address: [facility] [address] [place] [address] [place] [address] [facility] CHOICE PLUS [facility] HMO/PPO Address: [address] [place] [address] [facility] CHOICE PLUS [facility] H[facility]/PPO Address: [address] [place] [address] Advance Directives For more information, please contact: [phone] * Full Code (Latest Code Status on File) Date Activated Date Inactivated Comments 07/30/2020 7:50 AM 07/30/2020 1:43 PM * Full Code Date Activated Date Inactivated Comments 07/30/2020 7:50 AM 07/30/2020 7:50 AM Care Teams Student Services Advisor Relationship Specialty Start Date End Date Angelito Carrero MD PCP - General 09/27/12
--- OUTSIDE RECORDS SUMMARY | 2024-09-19 13:11 | XMS_ITS | Patient Health Record ---
Author Organization [facility] Address [address] [place], [place] [address] Support Name Relationship Address Phone JOAN VALDOVINOS Emergency Contact Unknown CHRISTINA VALDOVINOS Guarantor Unknown [phone] Reason For Referral No Information Plan Of Treatment No Information Insurance Providers Payer Name Payer Address Payer Phone Subscriber Number Group Number Insured Name Patient Relationship to Insured Coverage Start Date Coverage End Date [facility] [address] [address] [place] [id number] JOAN SOSA Spouse - patient is the spouse of the insured
--- OUTSIDE RECORDS SUMMARY | 2024-09-19 13:11 | XMS_ITS | Encounter Summary ---
Author Organization [facility] Address [address] [place] [address] Phone Care Team Providers Care Middle School Resource Teacher Name Role Phone Angelito Carrero MD Primary Care Provider Encounter Details Date Type Department Care Team (Late st Contact Info) Description 07/11/2017 Orders Only [facility] ProviderYoana MD [address] [place] [address] Social History Tobacco Use Types Packs/Day Years Used Date Smoking Tobacco: Never Smokeless Tobacco: Never Alcohol Use Standard Drinks/Week Comments No 0 (1 standard drink = 0.6 oz pur e alcohol) Comments No Sex and Gender Information Value Date Recorded Sex Assigned at Not on file Legal Sex Female 11:52 PM LEAD RADIOLOGIC TECHNOLOGIST Gender Identity Female 12/06/2019 9:36 AM CDT [...] COVID: Suspected 03/05/2021 03/05/2021 03/15/2021 3:05 AM LEAD RADIOLOGIC TECHNOLOGIST documented as of this encounter Care Teams Middle School Resource Teacher Relationship Specialty Start Date End Date Angelito Carrero MD PCP - General 09/27/12 documented as of this encounter
== END 2024-09-19 13:07 | disposition home or self-care (01) ==
PROVIDERS: PCP Internal Medicine; Visit Provider Urology
DX: R94.4 Abnormal results of kidney function studies (principal); N13.30 Unspecified hydronephrosis
CPT/HCPCS: 78708; A9562; J1938

== ENCOUNTER 2024-10-05 02:11 | Emergency (ER) | payer OTHER, SELFPAY ==
--- NOTE | ~2024-10-05 | CT_ITS ---
EXAMINATION: CT abdomen pelvis wo con DATE: 10/05/2024 05:48 INDICATION: Diarrhea TECHNIQUE: Computed tomography (CT) of the abdomen and pelvis was performed without intravenous contr ast. The dose-length product was 1589.35 mGy-cm. Automated exposure control and iterative reconstruct ion technique were employed. COMPARISON: CT dated 09/02/2014. FINDINGS: Dependent atelectasis. Heart size normal. Moderate size hiatal hernia. No significant pleur al or pericardial effusion. There is a left extrarenal pelvis. The liver, spleen, pancreas, adrenal g lands are unremarkable. There is a low-density lesion in the left kidney, most likely benign cysts. N o renal stones. Gallbladder not identified, likely surgically absent. There is fluid and gas throughout the small bowel and colon., Consistent with diarrhea. Enterocolitis not excluded. No significant vascular abnormality. No lymphadenopathy. IUD present in the uterus. Mo derate-severe lower thoracic and lumbar spondylosis with grade 1 degenerative spondylolisthesis at L4 -5. IMPRESSION: 1. Moderate gas and fluid throughout the small bowel and colon without transition point, consistent w ith known diarrhea. Consider enterocolitis. Reviewed, dictated and finalized at location A. IMPRESSION: 1. Moderate gas and fluid throughout the small bowel and colon without transiti on point, consistent with known diarrhea. Consider enterocolitis.
[2024-10-05 02:13] VITALS: BP 138/88; PULSE 93; RESP 18; TEMP 36.9; O2SAT 98
--- OUTSIDE RECORDS SUMMARY | 2024-10-05 02:14 | XMS_ITS | Clinical Summary ---
Author Organization [facility] Address [address] [place] [address] Care Team Providers Care Business Continuity Analyst Name Role Phone Unavailable Primary Care Provider Unavailabl e Source Comments [facility],non-owned Affiliates and Associated Physician Practices is amultiple site organization consisting of ambulatory clinics and hospital sitesin [place], [place], [place] and [place]. This disclosure is being madepursuant to the Care Everywhere program and may not contain all information available regarding this patient. Last updated 17.[facility] Allergies Active Allergy Reactions Criticality Noted Date [...] age to complete [place] [address] [place] [address] [facility]
--- OUTSIDE RECORDS SUMMARY | 2024-10-05 02:14 | XMS_ITS | Clinical Summary ---
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
--- OUTSIDE RECORDS SUMMARY | 2024-10-05 02:14 | XMS_ITS | Patient Health Record ---
Author Organization [facility] Address [address] [place], [place] [address] Support Name Relationship Address Phone JOAN VALDOVINOS Emergency Contact Unknown CHRISTINA VALDOVINOS Guarantor Unknown [phone] Reason For Referral No Information Plan Of Treatment No Information Insurance Providers Payer Name Payer Address Payer Phone Subscriber Number Group Number Insured Name Patient Relationship to Insured Coverage Start Date Coverage End Date [facility] [address] [address] [place] [id number] JOAN SOSA Spouse - patient is the spouse of the insured
--- OUTSIDE RECORDS SUMMARY | 2024-10-05 02:15 | XMS_ITS | Clinical Summary ---
Author Organization [facility] Address [address] [place] [phone] Care Team Providers Care Form Drafter Name Role Phone Angelito Carrero MD Primary [...] (07/26/2020): Added automatically from request for surgery [id number] Colonic mass 07/26/2020 Overview (07/26/2020): Added automatically from request for surgery [id number] BMI 35.0-35.9,adult 02/27/2017 Mixed hyperlipidemia 01/23/2017 Herniated [...] (07/26/2020): Added automatically from request for surgery [id number] Abdominal pain 07/26/2020 02/09/2021 Overview (07/26/2020): Added automatically from request for surgery [id number] Acute URI 02/27/2017 11/01/2018 Assessment & Plan (02/27/2017 9:55 AM RECREATIONAL RESORT MANAGER): Advised patient is likely be more of a viral URI at this time considering negative testing in office today and certainly with clinical examination however I did go ahead and send off a Z-Bennie for her to start only on a as needed basis if in the event symptoms seem to worsen come Thursday or certainly if they fail to improve with mnff-xof-yafksel management was advised office today including salt water gargles, Flonase nasal spray, antihistamines, increasing fluids and rest. Close monitoring outpatient follow-up as needed regarding condition Class 2 obesity due to exces s calories without serious comorbidity with body mass index (BMI) of 35.0 to 35.9 in adult 01/23/201703/2020 Constipation 10/06/2014 12/03/2018 Encounters Date Type Department Care Team Description 09/19/2024 Orders Only [facility] Health Information Management [address] [place] [address] Angelito Carrero MD 09/02/2024 Orders Only [facility] Health Information Management [address] [place] [address] Angelito Carrero MD 08/22/2024 Orders Only [facility] Primary Care at [address] [phone] Angelito Carrero MD Skin lesion of face (Primary Dx) 08/22/2024 Orders Only [facility] Primary Care at [address] [phone] Angelito Carrero MD 08/19/2024 Telephone [facility] Primary Care at [address] [place] [phone] Angelito Carrero MD Referral Request 08/11/2024 Orders Only [facility] Primary Care at [address] [place] [phone] Angelito Carrero MD from Last 3 Months [...] on file Legal Sex Female 11:52 PM RECREATIONAL RESORT MANAGER Gender Identity Female 12/06/2019 9:36 AM CDT Sexual Orientation Not on file Obstetrics History Para Term AB IAB SAB Ectopic Multiple Livin g Live Births 1 1 1 Date Outcome GA Total Labor Labor/2nd/3rd Weight Sex Type Anes PTL Jen A1 A5 Name Clin Term Last Filed Vital Signs Vital Sign Reading Time Taken Comments Blood Pressure 152/99 02/11/2024 8:25 AM RECREATIONAL RESORT MANAGER Pulse 77 02/11/2024 8:23 AM RECREATIONAL RESORT MANAGER Temperature 36.6 C (97.8 F) 12/25/2023 9:11 AM CDT Respiratory Rate 18 02/11/2024 8:23 AM RECREATIONAL RESORT MANAGER Oxygen Saturation 99% 02/11/2024 8:23 AM RECREATIONAL RESORT MANAGER Inhaled Oxygen Concentration - - Weight 101.6 [...] Discontinued 07/30/2020 Medical Devices Implanted Type Area Summer Babysitter Device Identifier Shelf Expiration Date Model / Serial / Lot Marker Breast Biopsy Ultraclip Bard Biodur 108 Polyvinyl Alcohol Coil L12 Cm Od17 Ga Tissue 2 Trigger Permanent Ultrasound Visibility Rigid Needle Interwoven Sterile Disposable [place] - [id number] - [id number] Implanted:Qty: 1 on 04/16/2017 at [facility] Breast Right: Breast Bard Peripheral Vascular 09/20/2019 [id number] / [id number] / Procedures Procedure Name Priority Date/Time Associated Diagnosis Comments SCAN - RADIOLOGY/IMAGING 09/19/2024 SCAN - LABS 09/02/2024 SCAN - RADIOLOGY/IMAGING 09/02/2024 EGFR Routine 11/06/2023 7:08 AM CDT Mixed hyperlipidemia LIPID PANEL Routine 11/06/2023 7:08 AM CDT Mixed hyperlipidemia SCREENING MAMMOGRAM BILATERAL W JUAN C Schedule Routine, Read Routine (OP Routine) 05/02/2023 8:38 AM RECREATIONAL RESORT MANAGER Screening mammogram, encounter for COLONOSCOPY 07/30/2020 7:45 AM CDT from Last 3 Months or Most Recently Relevant to Health Maintenance Results * SCAN - RADIOLOGY/IMAGING (09/19/2024) Anatomical Region Laterality Modality Other Angelito Carrero MD Final R esult * SCAN - RADIOLOGY/IMAGING (09/02/2024) Anatomical Region [...] 7:08 AM CDT 11/06/2023 8:10 AM CDT Angelito Carrero MD LAB BLOOD ORDERABLES nal Result MORELIA MONTALVO ([place]) 1 [facility] Department of Laboratories [place] [id number] * (ABNORMAL) Lipid panel (11/06/2023 7:08 AM [...] NCEP Expert Panel. Circulation 2004;110:227 3. Hans Quinn al. EDGARDO Cardiol. 2019June 23;5(5):540-548. doi: 10.1001/jamacardio.2020.0013 [...] revised on 2017. Chol/HDL ratio 4 CASEY Paez [facility] ([place]) Blood 11/06/2023 7:08 AM CDT 11/06/2023 8:10 AM CDT Narrative MORELIA MONTALVO ([place]) - 11/06/2023 8:42 AM CDT Has the patient been fasting for 8 hours or more?->Yes Angelito Carrero MD LAB BLOOD ORDERABLES Fi nal Result MORELIA MONTALVO ([place]) 1 [facility] [place] [address] * Screening Mammogram Bilateral W Juan C (05/02/2023 8:38 AM RECREATIONAL RESORT MANAGER) Anatomical Region Laterality Modality Breast Bilateral Mammography [...] Gallo MD - 07/30/2020 7:[address] [facility] Patient Name: Iesha Leon Procedure Date: 07/30/2020 7:45 AM Date of : 1970 Admit Type: Outpatient Age: 49 Gender: Female Attending MD: Hayden Gallo M.D. Room: [facility] ENDOSCOPY ROOM 1 Note Status: Finalized Patient [...] under direct vision. The Pediatric Colonoscope PCF-H190L [id number] was introducedthrough the anus and advanced to [...] 7:45 AM Procedure Code(s): --- Professional --- 76107, Colonoscopy, flexible; with biopsy, single or multiple Diagnosis Code(s): --- Professional --- K64.8, Other hemorrhoids K63.89, Other specified diseases of intestine R10.31, Right lower quadrant pain K92.1, Melena (includes Hematochezia) K57.30, Diverticulosis of large intestine without perforation orabscess without bleeding R93.3, Abnormal findings on diagnostic imaging of other parts of digestive tract CPT copyright 2019 [employer]. All rights reserved. The codes documented in this report are preliminary and upon university lecturer reviewmay be revised to meet current compliance requirements. Recognized by the [place] [employer] for promoting quality in endoscopy Hayden Gallo MD ENDOSCOPY PROCEDURES Final Result from Last 3 Months or Most Recently Relevant to Health Maintenance Insurance [facility] CHOICE [facility] H[facility]/PPO Address: [address] [place] [address] [facility] CHOICE [facility] HMO/PPO Address: [address] [place] [address] [facility] CHOICE PLUS [facility] H[facility]/PPO Address: [place] [address] Advance Directives For more information, please contact: [phone] * Full Code (Latest Code Status on File) Date Activated Date Inactivated Comments 07/30/2020 7:50 AM 07/30/2020 1:43 PM * Full Code Date Activated Date Inactivated Comments 07/30/2020 7:50 AM 07/30/2020 7:50 AM Care Teams Form Drafter Relationship Specialty Start Date End Date Angelito Carrero MD PCP - General 09/27/12
--- OUTSIDE RECORDS SUMMARY | 2024-10-05 02:15 | XMS_ITS | Encounter Summary ---
Author Organization [facility] Address [address] [place] [address] Phone Care Team Providers Care Electrical Unit Rebuilder Name Role Phone Angelito Carrero MD Primary Care Provider Encounter Details Date Type Department Care Team (Late st Contact Info) Description 07/11/2017 Orders Only [facility] ProviderYoana MD [address] [place] [phone] Social History Tobacco Use Types Packs/Day Years Used Date Smoking Tobacco: Never Smokeless Tobacco: Never Alcohol Use Standard Drinks/Week Comments No 0 (1 standard drink = 0.6 oz pur e alcohol) Comments No Sex and Gender Information Value Date Recorded Sex Assigned at Not on file Legal Sex Female 11:52 PM TEACHER OF THE DEAF Gender Identity Female 12/06/2019 9:36 AM CDT [...] COVID: Suspected 03/05/2021 03/05/2021 03/15/2021 3:05 AM TEACHER OF THE DEAF documented as of this encounter Care Teams Electrical Unit Rebuilder Relationship Specialty Start Date End Date Angelito Carrero MD PCP - General 09/27/12 documented as of this encounter
--- OUTSIDE RECORDS SUMMARY | 2024-10-05 05:00 | XMS_ITS | Clinical Summary ---
Author Organization [facility] Address [address] [facility] [place] [address] Care Team Providers Care Farm Consultant Name Role Phone Unavailable Primary Care Provider Unavailabl e Source Comments [facility],non-owned Affiliates and Associated Physician Practices is amultiple site organization consisting of ambulatory clinics and hospital sitesin [place], [place], [place] and [place]. This disclosure is being madepursuant to the Care Everywhere program and may not contain all information available regarding this patient. Last updated 17.[facility] Allergies Active Allergy Reactions Criticality Noted Date [...] age to complete [place] [address] [facility]
--- OUTSIDE RECORDS SUMMARY | 2024-10-05 05:00 | XMS_ITS | Encounter Summary ---
Author Organization [facility] Address [address] [place] [address] Phone Care Team Providers Care Sap Bw Bi Developer Name Role Phone Angelito Carrero MD Primary Care Provider Encounter Details Date Type Department Care Team (Late st Contact Info) Description 07/11/2017 Orders Only [facility] ProviderYoana MD [address] [place] [address] Social History Tobacco Use Types Packs/Day Years Used Date Smoking Tobacco: Never Smokeless Tobacco: Never Alcohol Use Standard Drinks/Week Comments No 0 (1 standard drink = 0.6 oz pur e alcohol) Comments No Sex and Gender Information Value Date Recorded Sex Assigned at Not on file Legal Sex Female 11:52 PM VESSEL LINER Gender Identity Female 12/06/2019 9:36 AM CDT [...] COVID: Suspected 03/05/2021 03/05/2021 03/15/2021 3:05 AM VESSEL LINER documented as of this encounter Care Teams Sap Bw Bi Developer Relationship Specialty Start Date End Date Angelito Carrero MD PCP - General 09/27/12 documented as of this encounter
--- OUTSIDE RECORDS SUMMARY | 2024-10-05 05:00 | XMS_ITS | Clinical Summary ---
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
--- OUTSIDE RECORDS SUMMARY | 2024-10-05 05:00 | XMS_ITS | Clinical Summary ---
Author Organization [facility] Address [address] [place] [phone] Care Team Providers Care Hydrometer Tester Name Role Phone Angelito Carrero MD Primary [...] (07/26/2020): Added automatically from request for surgery [id number] Colonic mass 07/26/2020 Overview (07/26/2020): Added automatically from request for surgery [id number] BMI 35.0-35.9,adult 02/27/2017 Mixed hyperlipidemia 01/23/2017 Herniated [...] (07/26/2020): Added automatically from request for surgery [id number] Abdominal pain 07/26/2020 02/09/2021 Overview (07/26/2020): Added automatically from request for surgery [id number] Acute URI 02/27/2017 11/01/2018 Assessment & Plan (02/27/2017 9:55 AM THREAD CUTTER): Advised patient is likely be more of a viral URI at this time considering negative testing in office today and certainly with clinical examination however I did go ahead and send off a Z-Bennie for her to start only on a as needed basis if in the event symptoms seem to worsen come Thursday or certainly if they fail to improve with gdkf-bpf-yiwsrer management was advised office today including salt water gargles, Flonase nasal spray, antihistamines, increasing fluids and rest. Close monitoring outpatient follow-up as needed regarding condition Class 2 obesity due to exces s calories without serious comorbidity with body mass index (BMI) of 35.0 to 35.9 in adult 01/23/201703/2020 Constipation 10/06/2014 12/03/2018 Encounters Date Type Department Care Team Description 09/19/2024 Orders Only [facility] Health Information Management [address] [place] [address] Angelito Carrero MD 09/02/2024 Orders Only [facility] Health Information Management [address] [place] [phone] Angelito Carrero MD 08/22/2024 Orders Only [facility] Primary Care at [address] [phone] Angelito Carrero MD Skin lesion of face (Primary Dx) 08/22/2024 Orders Only [facility] Primary Care at [address] [phone] Angelito Carrero MD 08/19/2024 Telephone [facility] Primary Care at [address] [place] [phone] Angelito Carrero MD Referral Request 08/11/2024 Orders Only [facility] Primary Care at [address] [place] [phone] Angelito Carrero MD from Last 3 Months [...] on file Legal Sex Female 11:52 PM THREAD CUTTER Gender Identity Female 12/06/2019 9:36 AM CDT Sexual Orientation Not on file Obstetrics History Para Term AB IAB SAB Ectopic Multiple Livin g Live Births 1 1 1 Date Outcome GA Total Labor Labor/2nd/3rd Weight Sex Type Anes PTL Jen A1 A5 Name Clin Term Last Filed Vital Signs Vital Sign Reading Time Taken Comments Blood Pressure 152/99 02/11/2024 8:25 AM THREAD CUTTER Pulse 77 02/11/2024 8:23 AM THREAD CUTTER Temperature 36.6 C (97.8 F) 12/25/2023 9:11 AM CDT Respiratory Rate 18 02/11/2024 8:23 AM THREAD CUTTER Oxygen Saturation 99% 02/11/2024 8:23 AM THREAD CUTTER Inhaled Oxygen Concentration - - Weight 101.6 [...] Discontinued 07/30/2020 Medical Devices Implanted Type Area Tube Draw Helper Device Identifier Shelf Expiration Date Model / Serial / Lot Marker Breast Biopsy Ultraclip Bard Biodur 108 Polyvinyl Alcohol Coil L12 Cm Od17 Ga Tissue 2 Trigger Permanent Ultrasound Visibility Rigid Needle Interwoven Sterile Disposable [place] - [id number] - [id number] Implanted:Qty: 1 on 04/16/2017 at [facility] Breast Right: Breast Bard Peripheral Vascular 09/20/2019 [id number] / [id number] / Procedures Procedure Name Priority Date/Time Associated Diagnosis Comments SCAN - RADIOLOGY/IMAGING 09/19/2024 SCAN - LABS 09/02/2024 SCAN - RADIOLOGY/IMAGING 09/02/2024 EGFR Routine 11/06/2023 7:08 AM CDT Mixed hyperlipidemia LIPID PANEL Routine 11/06/2023 7:08 AM CDT Mixed hyperlipidemia SCREENING MAMMOGRAM BILATERAL W JUAN C Schedule Routine, Read Routine (OP Routine) 05/02/2023 8:38 AM THREAD CUTTER Screening mammogram, encounter for COLONOSCOPY 07/30/2020 7:45 [...] LAB BLOOD ORDERABLES nal Result MORELIA MONTALVO ([place]) 1 [facility] Department of Laboratories [place] [id number] * (ABNORMAL) Lipid panel (11/06/2023 7:08 AM [...] 2017. Chol/HDL ratio 4 [facility] Pae[facility] ([place]) Blood 11/06/2023 7:08 AM CDT 11/06/2023 8:10 AM CDT Narrative [facility] MONTALVO ([place]) - 11/06/2023 8:42 AM CDT Has the patient been fasting for 8 hours or more?->Yes Angelito Carrero MD LAB BLOOD ORDERABLES Fi nal Result MORELIA MONTALVO ([place]) 1 [facility] [place] [address] * Screening Mammogram Bilateral W Juan C (05/02/2023 8:38 AM THREAD CUTTER) Anatomical Region Laterality Modality Breast Bilateral Mammography [...] Gallo MD - 07/30/2020 7:45 AM CDT [facility] Patient Name: Iesha Leon Procedure Date: 07/30/2020 7:45 AM Date of : 1970 Admit Type: Outpatient Age: 49 Gender: Female Attending MD: Hayden Gallo M.D. Room: [facility] END[facility] 1 Note Status: Finalized [...] under direct vision. The Pediatric Colonoscope PCF-H190L [id number] was introducedthrough the anus and advanced to [...] 7:45 AM Procedure Code(s): --- Professional --- 39284, Colonoscopy, flexible; with biopsy, single or multiple Diagnosis Code(s): --- Professional --- K64.8, Other hemorrhoids K63.89, Other specified diseases of intestine R10.31, Right lower quadrant pain K92.1, Melena (includes Hematochezia) K57.30, Diverticulosis of large intestine without perforation orabscess without bleeding R93.3, Abnormal findings on diagnostic imaging of other parts of digestive tract CPT copyright 2019 [employer] [place] [employer]. All rights reserved. The codes documented in this report are preliminary and upon deodorizer operator reviewmay be revised to meet current compliance requirements. Recognized by the [place] [employer] for promoting quality in endoscopy Hayden Gallo MD ENDOSCOPY PROCEDURES Final Result from Last 3 Months or Most Recently Relevant to Health Maintenance Insurance [facility] PL[facility] [employer] Advance Directives For more information, please contact: [phone] * Full Code (Latest Code Status on File) Date Activated Date Inactivated Comments 07/30/2020 7:50 AM 07/30/2020 1:43 PM * Full Code Date Activated Date Inactivated Comments 07/30/2020 7:50 AM 07/30/2020 7:50 AM Care Teams Hydrometer Tester Relationship Specialty Start Date End Date Angelito Carrero MD PCP - General 09/27/12
[2024-10-05 05:25] LABS: Hematocrit 41.7 % (37.0-47.0); Hemoglobin 13.6 g/dL (12.0-15.0); Immature Granulocyte Percent A 0.2 % (0-0.5); Lymphocytes Absolute Auto 0.87 K/mm3 (0.9-3.2); Mean Corpuscular HGB Conc 32.6 g/dl (32-36); Mean Corpuscular Hemoglobin 29.1 pg (26-34); Mean Corpuscular Volume 89.1 fl (80-100); Nucleated Red Blood Cells Absolute Auto 0.000 K/mm3 (0.0-0.012); Nucleated Red Blood Cells Perc 0.0 % (0.0-0.2); Platelet Count Result 157 k/mm3 (150-375); Red Blood Count 4.68 M/mm3 (4.2-5.4); White Blood Count 4.9 K/mm3 (4.5-10.0)
--- NOTE | 2024-10-05 05:41 | ED.BACK ---
HPI - Back Pain/Injury General Chief Complaint: Back Pain/Injury <Eh Redding MD - Last Filed: 10/06/24 05:57> Stated Complaint: i believe I am septic from kidneys. 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 She presents to the emergency department with complaints of back pain, diarrhea illness, subjective chills and feeling unwell with nauseousness. Symptoms going on for several days. Patient otherwise was in her normal state of health. No sick contacts. No chest pain or shortness of breath. No productive cough. Thinks it could be related to her kidneys as she has had kidney injuries and kidney infections before. Sees Urology at this facility outpatient regularly with most recent visit several weeks ago for new commit testing that showed normal bilateral kidney function and mild left hydro persistent. <Eh Redding MD - Last Filed: 10/06/24 05:57> Related Data Allergies/Adverse Reactions: Allergies Allergy/AdvReac Type Severity Reaction Status Date / Time Sulfa (Sulfonamide Allergy Unknown SKIN RASH Verified 03/01/18 21:35 Antibiotics) <Eh Redding MD - Last Filed: 10/06/24 05:57> Review of Systems Review of Systems: As reviewed above in HPI <Eh Redding MD - Last Filed: 10/06/24 05:57> Exam Narrative: GENERAL: [Well-appearing, well-nourished, and in no acute distress.] HEAD: [Normocephalic, atraumatic.] EYES: [PERRLA and EOMI.] ENT: Nares clear, no rhinorrhea or epistaxis. Mucous membranes moist. NECK: Supple. CHEST: [Clear to auscultation. No respiratory distress.] HEART: [Regular rate and rhythm]. No murmur heard. [Normal peripheral pulses.] ABDOMEN: [Soft, nondistended], mildly tender to palpation in lower bilateral quadrants, [No rigidity or guarding] EXTREMITIES: Normal range of motion. [No edema.] SKIN: Warm, dry, no rash. NEURO: [No focal deficits]. Alert and oriented [x3.] PSYCH: [Normal mood and affect.] <Eh Redding MD - Last Filed: 10/06/24 05:57> Course Course Emergency Course: Sandy: Patient signed out pending CT abdomen pelvis and urinalysis. CT and pelvis showed diarrheal illness. Urinalysis was clean. Patient given symptomatic treatment with Toradol Zofran and Imodium. Patient evaluated is resting comfortably in bed with stable vital signs her concerns about sepsis were addressed. She is discharged with prescription for Imodium. Given return precautions/primary care follow-up. <Terrell Delgado MD - Last Filed: 10/05/24 08:35> Vital Signs Vital signs: Vital Signs Temperature 36.9 C 10/05/24 02:13 Pulse Rate 93 10/05/24 02:13 Respiratory Rate 18 10/05/24 02:13 Blood Pressure 138/88 10/05/24 02:13 Pulse Oximetry 98 10/05/24 02:13 Oxygen Delivery Room Air 10/05/24 02:13 Temperature 36.8 C 10/05/24 06:21 Pulse Rate 76 10/05/24 07:16 Respiratory Rate 23 H 10/05/24 07:16 Blood Pressure 140/69 10/05/24 07:16 Pulse Oximetry 100 10/05/24 07:16 Oxygen Delivery Room Air 10/05/24 06:21 <Eh Redding MD - Last Filed: 10/06/24 05:57> Vital Signs Temperature 36.9 C 10/05/24 02:13 Pulse Rate 93 10/05/24 02:13 Respiratory Rate 18 10/05/24 02:13 Blood Pressure 138/88 10/05/24 02:13 Pulse Oximetry 98 10/05/24 02:13 Oxygen Delivery Room Air 10/05/24 02:13 Temperature 36.8 C 10/05/24 06:21 Pulse Rate 76 10/05/24 07:16 Respiratory Rate 23 H 10/05/24 07:16 Blood Pressure 140/69 10/05/24 07:16 Pulse Oximetry 100 10/05/24 07:16 Oxygen Delivery Room Air 10/05/24 06:21 <Terrell Delgado MD - Last Filed: 10/05/24 08:35> MDM - Back Pain/Injury MDM Narrative Medical decision making narrative: 54-year-old female with a past medical history including your 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 She presents to the emergency department with complaints of back pain, diarrhea illness, subjective chills and feeling unwell with nauseousness. Symptoms going on for several days. Patient otherwise was in her normal state of health. No sick contacts. No chest pain or shortness of breath. No productive cough. Thinks it could be related to her kidneys as she has had kidney injuries and kidney infections before. Sees Urology at this facility outpatient regularly with most recent visit several weeks ago for new commit testing that showed normal bilateral kidney function and mild left hydro persistent. Patient is not any acute distress with normal vital signs here. Afebrile without any tachycardia, tachypnea or hypoxemia. Normal blood pressure. Examination reassuring although she has some mild tenderness in the lower abdominal quadrants. Historical features consistent with potential gastroenteritis versus nonspecific diarrheal illness versus less likely intra-abdominal infection or urinary tract infection. Laboratory studies obtained as well as urinalysis and a CT scan without contrast. She was given fluid for hydration and re-evaluated. Patient's laboratory studies are reassuring so far. No leukocytosis or anemia. Normal platelet count. Electrolytes are normal. Creatinine mildly elevated 1.03 but not significant kidney injury. Normal glucose. LFTs mildly elevated. Normal lipase. Urinalysis pending, CT pending. Patient endorsed to oncoming ER physician pending completion of workup and final disposition based on results. <Eh Redding MD - Last Filed: 10/06/24 05:57> Medical Records Attestation: I reviewed the patient's medical records. <Eh Redding MD - Last Filed: 10/06/24 05:57> Lab Data Attestation: I reviewed the patient's lab results. <Eh Redding MD - Last Filed: 10/06/24 05:57> Result diagrams: 10/05/24 05:19 10/05/24 05:19 <Eh Redding MD - Last Filed: 10/06/24 05:57> Labs: Lab Results 10/05/24 10/05/24 10/05/24 Range/Units 05:19 06:09 07:32 WBC 4.9 (4.5-10.0) K/mm3 RBC 4.68 (4.2-5.4) M/mm3 Hgb 13.6 (12.0-15.0) g/dL Hct 41.7 (37.0-47.0) % MCV 89.1 (80-100) fl MCH 29.1 (26-34) pg MCHC 32.6 (32-36) g/dl RDW 13.8 (11.5-14.5) % Plt Count 157 (150-375) k/mm3 MPV 9.8 (7.4-10.4) fl Immature Gran % (Auto) 0.2 (0-0.5) % Neut % (Auto) 73.3 H (45.5-73.1) % Lymph % (Auto) 17.6 L (18.3-44.2) % [place] % (Auto) 7.5 (2.6-8.5) % Eos % (Auto) 1.2 (0-4.4) % Baso % (Auto) 0.2 (0.2-1.2) % Lymph # (Auto) 0.87 L (0.9-3.2) K/mm3 [place] # (Auto) 0.4 (0.1-0.6) K/mm3 Eos # (Auto) 0.1 (0-0.3) K/mm3 Baso # (Auto) 0.0 (0.0-0.1) K/mm3 Abs Immat Gran (auto) 0.01 (0.00-0.031) K/mm3 Absolute Neuts (auto) 3.6 (1.3-6.7) K/mm3 Absolute Nucleated RBC 0.000 (0.0-0.012) K/mm3 Nucleated RBC % 0.0 (0.0-0.2) % Sodium 137 (137-145) mmol/L Potassium 3.4 (3.4-5.0) mmol/L Chloride 107 (98-107) mmol/L Carbon Dioxide 21 L (22-30) mmol/L Anion Gap 9 (4-12) mmol/L BUN 10 D (7-17) mg/dL Creatinine 1.03 H (0.7-1.0) mg/dL Estim Creat Clear Calc 62 ml/min Estimated GFR 55 L (59 - ) Glucose 107 (65-110) mg/dL Calcium 9.1 (8.4-10.2) mg/dL Total Bilirubin 1.7 H (0.2-1.3) mg/dL AST 38 H (14-36) U/L ALT 28 (6-35) U/L Alkaline Phosphatase 69 (38-126) U/L Total Protein 7.9 (6.3-8.2) g/dL Albumin 4.1 (3.5-5.1) g/dL Lipase 103 (23-300) U/L Urine Color Yellow (Yellow) Urine Appearance Clear (Clear) Urine pH 7.0 (5.0-9.0) Ur Specific Marshall 1.008 (1.001-1.035) Urine Protein Negative (Negative) mg/dL Urine Glucose (UA) Negative (Negative) mg/dL Urine Ketones Negative (Negative) mg/dL Ur Blood (Man) Negative (Negative) Urine Nitrate Negative (Negative) Urine Bilirubin Negative (Negative) Urine Urobilinogen 0.2 (<2.0) mg/dL Leukocyte Esterase Rfl Negative (Negative) KEMAR/UL Influenza A (RT-PCR) Negative (Negative) Influenza B (RT-PCR) Negative (Negative) RSV (RT-PCR) Negative (Negative) SARS-CoV-2 RNA (RT-PCR) Negative (Negative) <Eh Redding MD - Last Filed: 10/06/24 05:57> Lab Results 10/05/24 10/05/24 10/05/24 Range/Units 05:19 06:09 07:32 WBC 4.9 (4.5-10.0) K/mm3 RBC 4.68 (4.2-5.4) M/mm3 Hgb 13.6 (12.0-15.0) g/dL Hct 41.7 (37.0-47.0) % MCV 89.1 (80-100) fl MCH 29.1 (26-34) pg MCHC 32.6 (32-36) g/dl RDW 13.8 (11.5-14.5) % Plt Count 157 (150-375) k/mm3 MPV 9.8 (7.4-10.4) fl Immature Gran % (Auto) 0.2 (0-0.5) % Neut % (Auto) 73.3 H (45.5-73.1) % Lymph % (Auto) 17.6 L (18.3-44.2) % [place] % (Auto) 7.5 (2.6-8.5) % Eos % (Auto) 1.2 (0-4.4) % Baso % (Auto) 0.2 (0.2-1.2) % Lymph # (Auto) 0.87 L (0.9-3.2) K/mm3 [place] # (Auto) 0.4 (0.1-0.6) K/mm3 Eos # (Auto) 0.1 (0-0.3) K/mm3 Baso # (Auto) 0.0 (0.0-0.1) K/mm3 Abs Immat Gran (auto) 0.01 (0.00-0.031) K/mm3 Absolute Neuts (auto) 3.6 (1.3-6.7) K/mm3 Absolute Nucleated RBC 0.000 (0.0-0.012) K/mm3 Nucleated RBC % 0.0 (0.0-0.2) % Sodium 137 (137-145) mmol/L Potassium 3.4 (3.4-5.0) mmol/L Chloride 107 (98-107) mmol/L Carbon Dioxide 21 L (22-30) mmol/L Anion Gap 9 (4-12) mmol/L BUN 10 D (7-17) mg/dL Creatinine 1.03 H (0.7-1.0) mg/dL Estim Creat Clear Calc 62 ml/min Estimated GFR 55 L (59 - ) Glucose 107 (65-110) mg/dL Calcium 9.1 (8.4-10.2) mg/dL Total Bilirubin 1.7 H (0.2-1.3) mg/dL AST 38 H (14-36) U/L ALT 28 (6-35) U/L Alkaline Phosphatase 69 (38-126) U/L Total Protein 7.9 (6.3-8.2) g/dL Albumin 4.1 (3.5-5.1) g/dL Lipase 103 (23-300) U/L Urine Color Yellow (Yellow) Urine Appearance Clear (Clear) Urine pH 7.0 (5.0-9.0) Ur Specific Marshall 1.008 (1.001-1.035) Urine Protein Negative (Negative) mg/dL Urine Glucose (UA) Negative (Negative) mg/dL Urine Ketones Negative (Negative) mg/dL Ur Blood (Man) Negative (Negative) Urine Nitrate Negative (Negative) Urine Bilirubin Negative (Negative) Urine Urobilinogen 0.2 (<2.0) mg/dL Leukocyte Esterase Rfl Negative (Negative) KEMAR/UL Influenza A (RT-PCR) Negative (Negative) Influenza B (RT-PCR) Negative (Negative) RSV (RT-PCR) Negative (Negative) SARS-CoV-2 RNA (RT-PCR) Negative (Negative) <Terrell Delgado MD - Last Filed: 10/05/24 08:35> Imaging Data Attestation: I personally reviewed and interpreted this imaging study as follows: <Eh Redding MD - Last Filed: 10/06/24 05:57> Discharge Plan Discharge Clinical Impression: Acute diarrhea, Ureteral stricture, left, Abdominal pain <Eh Redding MD - Last Filed: 10/06/24 05:57> Patient Disposition: Home <Eh Redding MD - Last Filed: 10/06/24 05:57> Condition: Stable <Eh Redding MD - Last Filed: 10/06/24 05:57> Additional Instructions: You were seen in the emergency department for diarrhea. Please drink plenty of fluids and use Imodium as needed. If you develop severe abdominal pain, fevers, or bloody diarrhea please return emergency department. Follow up with primary physician in 3-7 days. <Eh Redding MD - Last Filed: 10/06/24 05:57> Patient Language: Brazilian <Eh Redding MD - Last Filed: 10/06/24 05:57> Prescriptions: New diphenoxylate-atropine [Lomotil] 2.5-0.025 mg tablet 1 tablet PO TID Qty: 21 0RF loperamide [Imodium A-D] 2 mg capsule 2 mg PO Q6H PRN (Reason: loose stool) Qty: 20 0RF No Action hydrocodone-acetaminophen 5-325 mg tablet 1 tablet PO Q8H PRN (Reason: pain) Qty: 14 0RF ondansetron 4 mg tablet,disintegrating 4 mg PO Q8H Qty: 14 0RF <Eh Redding MD - Last Filed: 10/06/24 05:57> Follow-up/Referrals: Magan,Angelito Bailon MD [Primary Care Provider] - <Eh Redding MD - Last Filed: 10/06/24 05:57>
[2024-10-05 05:59] LABS: Alanine Aminotransferase 28 U/L (6-35); Albumin Level 4.1 g/dL (3.5-5.1); Alkaline Phosphatase 69 U/L (38-126); Anion Gap 9 mmol/L (4-12); Aspartate Amino Transferase 38 U/L (14-36); Bilirubin,Total 1.7 mg/dL (0.2-1.3); Blood Urea Nitrogen 10 mg/dL (7-17); Calcium 9.1 mg/dL (8.4-10.2); Carbon Dioxide 21 mmol/L (22-30); Chloride 107 mmol/L (98-107); Estimated CRCL calculation 62 ml/min; Estimated Glomerular Filt Rate 55; Glucose 107 mg/dL (65-110); Lipase 103 U/L (23-300); Potassium 3.4 mmol/L (3.4-5.0); Sodium 137 mmol/L (137-145); Total Protein 7.9 g/dL (6.3-8.2)
[2024-10-05] MEDS: LACTATED RINGERS 1,000 ML 999 ML IV CONT ×2 (06:08)
[2024-10-05 06:21] VITALS: BP 144/74; PULSE 86; RESP 20; TEMP 36.8; O2SAT 99
--- NOTE | 2024-10-05 06:25 | PC.NURSE ---
Pt aware of need for UA sample. Bladder scan showed less than 120mls in bladder. Pt educated on use of call light when able to provide sample.
[2024-10-05 07:16] VITALS: BP 140/69; PULSE 76; RESP 23; O2SAT 100
[2024-10-05 07:42] LABS: Influenza A QL RT-PCR Negative (Negative); Influenza B QL RT-PCR Negative (Negative); RSV RNA, RT-PCR Negative (Negative); SARS-CoV-2 RNA PCR Negative (Negative)
[2024-10-05] MEDS: ONDANSETRON INJ 4 MG/2 ML VIAL IV PUSH (07:45)
[2024-10-05] MEDS: LOPERAMIDE HCL 2 MG CAPSULE 4 MG PO (07:45)
[2024-10-05] MEDS: KETOROLAC 15 MG/ML VIAL (*BKC) IV PUSH (07:45)
[2024-10-05 07:59] LABS: Add Urine Microscopic? NO; Appearance Urine Clear (Clear); Glucose Urine UA Negative (Negative); Leukocyte Esterase Ur Negative LEU/UL (Negative); Nitrate Urine Negative (Negative); Specific Grav Ur 1.008 (1.001-1.035)
== END 2024-10-05 08:47 | disposition home or self-care (01) ==
PROVIDERS: Emergency Provider Student in an Organized Health Care Education/Training Program; PCP Internal Medicine
DX: R19.7 Diarrhea, unspecified (principal); N13.5 Crossing vessel and stricture of ureter without hydronephrosis; R10.9 Unspecified abdominal pain; Z11.59 Encounter for screening for other viral diseases
CPT/HCPCS: 36415; 74176; 80053; 81003; 83690; 85025; 87637; 96361; 96374; 96375; 99284; A9270; J1885; J2405; J7120

== ENCOUNTER 2025-02-10 13:03 | Outpatient (CLI) | payer OTHER, SELFPAY ==
--- NOTE | ~2025-02-10 | NM_ITS ---
EXAMINATION: CINDY johnson renal scan DATE: 02/10/2025 14:47 INDICATION: Hydronephrosis TECHNIQUE: 0.2 mCi Tc-99m MAG3 was administered IV. 40 mg furosemide was administered IV 10 minutes afterward. The patient was scanned in the supine position. A posterior abdominal radionuclide angiogram was obtained. A subsequent time course of static images of the kidneys, ureters, and bladder was obtained. COMPARISON: None FINDINGS: The posterior abdominal radionuclide angiogram and sequential static images show normal size, position, and morphology of the kidneys. Peak renal parenchymal uptake was 12.5 min in left kidney and 6.5 min in right kidney (normal peak 3-5 minutes). The relative early renal uptake was 47% on the left and 53% on the right (<40% is abnormal). No abnormalities of the ureters or bladder are seen. T1/2 for clearance of activity from the left kidney and proximal collecting system was 7 minutes. T1/2 for clearance of activity from the right kidney and proximal collecting system was 11 minutes. Notes on interpretation: T1/2 <10 minutes is normal, 10-15 minutes is low grade obstruction of questionable clinical significance, 15-20 minutes is partial obstruction that is likely clinically significant, >20 minutes is high grade obstruction. Note that false positives may be seen with supine positioning, dehydration, severely dilated nonobstructed kidney, atonic collecting system, poor renal function, and chronic furosemide use. IMPRESSION: 1. Symmetric kidney function. 2. No delay in activity clearance from the left kidney and minimally delayed activity clearance in the right kidney which could be due to low-grade obstruction of questionable clinical significance. There is however no evident photopenic defect to suggest hydronephrosis in the delayed time to peak in both kidneys suggests this could be related to poor renal function. Reviewed, dictated and finalized at location A. NICIAN'S HELPER IMPRESSION: 1. Symmetric kidney function. 2. No delay in activity clearance from the left kidney and minimally delayed a ctivity clearance in the right kidney which could be due to low-grade obstructi on of questionable clinical significance. There is however no evident photopeni c defect to suggest hydronephrosis in the delayed time to peak in both kidneys suggests this could be related to poor renal function.
--- OUTSIDE RECORDS SUMMARY | 2025-02-10 13:12 | XMS_ITS | Patient Health Record ---
Author Organization [facility] Address [address] [place], [place] [id number] Support Name Relationship Address Phone JOAN VALDOVINOS Emergency Contact Unknown [phone] CHRISTINA VALDOVINOS Guarantor Unknown [phone] Reason For Referral No Information Plan Of Treatment No Information Insurance Providers Payer Name Payer Address Payer Phone Subscriber Number Group Number Insured Name Patient Relationship to Insured Coverage Start Date Coverage End Date [facility] [address] [address] [place] [id number] JOAN SOSA Spouse - patient is the spouse of the insured
--- OUTSIDE RECORDS SUMMARY | 2025-02-10 13:12 | XMS_ITS | Clinical Summary ---
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 [address] [place] [id number] PCP - General Internal Medicine 11/15/18
--- OUTSIDE RECORDS SUMMARY | 2025-02-10 13:12 | XMS_ITS | Clinical Summary ---
Author Organization [facility] Address [address] [facility] [place] [address] Care Team Providers Care Account Advisor Name Role Phone Unavailable Primary Care Provider Unavailabl e Source Comments [facility],non-owned Affiliates and Associated Physician Practices is amultiple site organization consisting of ambulatory clinics and hospital sitesin [place], [place], [place] and [place]. This disclosure is being madepursuant to the Care Everywhere program and may not contain all information available regarding this patient. Last updated 17.[facility] Allergies Active Allergy Reactions Criticality Noted Date [...] 2018 ZOSTER VACCINE (1 of 2) 2018 DEPRESSION SCREENING 02/24/2024 COVID-19 VACCINE (1 - 2024-2 6 season) 2024 INFLUENZA VACCINE (#1) 2024 HIB VACCINE Aged [...] age to complete this [place] [address] [facility]
--- OUTSIDE RECORDS SUMMARY | 2025-02-10 13:12 | XMS_ITS | Encounter Summary ---
Author Organization [facility] Address [address] [place] [address] Phone Care Team Providers Care Core Feeder Name Role Phone Angelito Carrero MD Primary Care Provider Encounter Details Date Type Department Care Team (Late st Contact Info) Description 07/11/2017 Orders Only [facility] ProviderYoana MD [address] [place] [id number] Social History Tobacco Use Types Packs/Day Years Used Date Smoking Tobacco: Never Smokeless Tobacco: Never Alcohol Use Standard Drinks/Week Comments No 0 (1 standard drink = 0.6 oz pur e alcohol) Comments No Sex and Gender Information Value Date Recorded Sex Assigned at Not on file Legal Sex Female 11:52 PM OPEN DIE INSPECTOR Gender Identity Female 12/06/2019 9:36 AM [...] COVID: Suspected 03/05/2021 03/05/2021 03/15/2021 3:05 AM OPEN DIE INSPECTOR C. difficile suspected 10/07/2024 10/11/202410/08 7:26 PM CDT C. difficile suspected 10/11/2024 10/11/202410/11 3:32 PM CDT documented as of this encounter Care Teams Core Feeder Relationship Specialty Start Date End Date Angelito Carrero MD PCP - General 09/27/12 documented as of this encounter
--- OUTSIDE RECORDS SUMMARY | 2025-02-10 13:12 | XMS_ITS | Clinical Summary ---
Author Organization [facility] Address [address] [place] [id number] Care Team Providers Care Grainer Machine Name Role Phone Angelito Carrero MD Primary Care Provider Allergies Active Allergy Reactions Criticality Noted Date Comments Sulfa (Sulfonamide Antibiotics) Medications naloxone (NARCAN) 4 mg/actuation spray,non-aeros ol Administer [...] muscle spasms 30 tablet 3 4 Active LORazepam (ATIVAN) 0.5 mg tablet Take 1 tablet (0.5 mg total) by mouth every 6 (six) hours as needed for anxiety 20 tablet 5 4 Active traMADoL (ULTRAM) 50 mg tablet Take 1 tablet (50 mg total) by mouth every 6 (six) hours 100 tablet 5 4 Active guaiFENesin-pse udoephedrine (MUCINEX D) 600-60 mg per 12 hr tablet Take 1 tablet by mouth nightly 30 tablet 3 4 Active HYDROcodone-stu taminophen (NORCO) 5-325 mg per tablet Take by mouth every 8 (eight) hours as needed 5 Active loperamide (IMODIUM) 2 mg capsule TAKE 1 CAPSULE BY MOUTH EVERY 6 HOURS NEEDED FOR LOOSE STOOLS [address] (VOLTAREN) 75 mg EC tablet Take 1 tablet (75 mg total) by mouth 2 (two) times a day 180 tablet 3 5 10/15/19 26 Active escitalopram (LEXAPRO) 10 mg tablet Take 1 tablet (10 mg total) by mouth daily 90 tablet 3 5 Active phentermine (ADIPEX-P) 37.5 mg tablet Take 1 tablet (37.5 mg total) by mouth daily before breakfast 30 tablet 5 5 Active rosuvastatin (CRESTOR) 20 mg tablet Take 1 tablet (20 mg total) by mouth daily To lower cholesterol 90 tablet 3 5 10/15/19 26 Active topiramate (TOPAMAX) 25 mg tablet Take 2 tablets (50 mg total) by mouth 2 (two) times a day 360 tablet 3 5 Active traZODone (DESYREL) 100 mg tablet Take 1 tablet (100 mg total) by mouth nightly as needed for sleep 90 tablet 3 5 10/15/19 26 Active acyclovir (ZOVIRAX) 400 mg tablet Take 1 tab (400 mg) by mouth 5 times a day for 5 days. 25 tablet 5 5 Active azithromycin (ZITHROMAX) 250 mg tablet Take 2 tabs (500 mg) by mouth today, than 1 tab (250 mg) daily for 4 days. 6 tablet 5 01/29/20 25 Active Problems Problem Noted Date Diagnosed Date Class 3 severe obesity due t o excess calories with serious comorbidity and body mass index (BMI) of 40.0 to 44.9 in adult 11/13/2023 Recurrent major depression 04/13/2023 Primary insomnia 02/07/[address] scan 07/26/2020 Overview (07/26/2020): Added automatically from request for surgery [id number] Colonic mass 07/26/2020 Overview (07/26/2020): Added automatically from request for surgery [id number] Mixed hyperlipidemia 01/23/2017 Herniated lumbar intervertebral disc [...] Date Resolved Date Diabetes mellitus 04/13/2023 11/13/2023 History of 2019 novel mcdaniel virus disease (COVID-19) 02/07/2022 10/07/2024 Hematochezia 07/26/2020 02/09/2021 Overview (07/26/2020): Added automatically from request for surgery [id number] Abdominal pain 07/26/2020 02/09/2021 Overview (07/26/2020): Added automatically from request for surgery [id number] BMI 35.0-35.9,adult 02/27/2017 10/08/19 25 Acute URI 02/27/2017 11/01/2018 Assessment & Plan (02/27/2017 9:55 AM ACCOUNTING SPECIALIST): Advised patient is likely be more of a viral URI at this time considering negative testing in office today and certainly with clinical examination however I did go ahead and send off a Z-Bennie for her to start only on a as needed basis if in the event symptoms seem to worsen come Thursday or certainly if they fail to improve with [id number] management was advised office today including salt water gargles, Flonase nasal spray, antihistamines, increasing fluids and rest. Close monitoring outpatient follow-up as needed regarding condition Class 2 obesity due to exces s calories without serious comorbidity with body mass index (BMI) of 35.0 to 35.9 in adult 01/23/201703/2020 Constipation 10/06/2014 12/03/2018 Encounters Date Type Department Care Team Description 01/23/2025 1:30 PM ACCOUNTING SPECIALIST Office Visit [facility] [address] [place] [address] Sherrie Norman NP Middle ear effusion, bilateral (Primary Dx); Pharyngitis, unspecified etiology 01/23/2025 Telephone [facility] [address] [place] [address] Angelito Carrero MD from Last 3 Months Immunizations Immunization Administration Dates Next Due Influenza, Quadrivalent, Moni l Culture-based MDCK, Preservative Free, Antibiotic Free, Intramuscular 03/15/2019 Influenza, Unspecified 01/23/2025(Deferr ed: Patient Refused),10/14/2024(Deferred: Patient Refused),12/25/2023(Deferred: Patient Refused),11/13/2023(Deferred: Patient Refused),04/13/2023(Deferred: Patient Refused),02/18/2022(Deferred: Patient [...] Never Smokeless Tobacco: Never Tobacco Cessation:Counseling Given: Not Answered Alcohol Use Standard Drinks/Week Comments Never 0 (1 standard drink = 0.6 oz pur e alcohol) PHQ-2 Answer Date Recorded PHQ-2 Total Score (If total score is 3 or more points, staff should administer the PHQ-9) 0 10/14/2024 PHQ-9 Answer Date Recorded PHQ-9 Total Score 9 02/11/2024 AUDIT-C Answer Date Recorded Q1: How often do you have a drink containing alcohol? Never 01/23/2025 Q2: How many drinks containi ng alcohol do you have on a typical day when you are drinking? Patient does not drink Q3: How often do you have si x or more drinks on one occasion? Never 01/23/2025 Comments No Sex and Gender Information Value Date Recorded Sex Assigned at Not on file Legal Sex Female 11:52 PM ACCOUNTING SPECIALIST Gender Identity Female 12/06/2019 9:36 AM CDT Sexual Orientation Not on file Obstetrics History Para Term AB IAB SAB Ectopic Multiple Livin g Live Births 1 1 Date Outcome GA Total Labor Labor/2nd/3rd Weight Sex Type Anes PTL Jen A1 A5 Name Clin Term Last Filed Vital Signs Vital Sign Reading Time Taken Comments Blood Pressure 140/80 01/23/2025 1:29 PM ACCOUNTING SPECIALIST Pulse 78 01/23/2025 1:29 PM ACCOUNTING SPECIALIST Temperature 36.8 C (98.2 F) 01/23/2025 1:29 PM ACCOUNTING SPECIALIST Respiratory Rate 16 10/14/2024 3:39 PM CDT Oxygen Saturation 100% 01/23/2025 1:29 PM ACCOUNTING SPECIALIST Inhaled Oxygen Concentration - - Weight 109.3 kg (241 lb) 01/23/2025 1:29 PM ACCOUNTING SPECIALIST Height 160 cm (5' 3) 01/23/2025 1:29 PM ACCOUNTING SPECIALIST Body Mass Index 42.69 01/23/2025 1:29 PM ACCOUNTING SPECIALIST Plan of Treatment Health Maintenance Due Date Last Done Comments Albumin Creatinine Ratio, Urine 1970 Cervical Cancer Screening 1970 Hepatitis C Screening 1970 Osteoporosis Screening-Bone Density Scan 1970 Dilated Eye Exam 1970 Foot Exam 1970 Hepatitis B Screening 1986 Pneumococcal vaccine <65 (1 of 2 - PCV) 09/23/1987 Zoster Vaccine (1 of 2) 2018 Breast Cancer Screening-Mammogram 05/01/2024 05/02/2023, 04/05/2022, 02/06/2021, Additional history exists Covid-19 Vaccine (3 - 2024-2 6 season) 2024 08/24/2020, 08/02/2020 Influenza Vaccine (#1) 2024 03/15/2019 Hemoglobin A1C 04/09/2025 10/07/2024 Lipid Panel 10/07/2025 10/07/2024, 10/24, 04/03/2023, Additional history exists eGFR 10/07/2025 10/07/2024, 10/24, 04/03/2023, Additional history exists Depression Screening 10/14/2025 10/14/2024, 10/07/2024, 02/11/2024, Additional history exists Regular Well Visit/Exam 18-64 10/14/2025, 04/13/2023, 02/07/2022, Additional history exists Colon Cancer Screening-Colonoscopy 07/30/2030 07/30/2020 DTaP/Tdap/Td Vaccine (2 - Td or Tdap) 04/17/2033 04/17/2023 Colon Cancer Screening-CT Colonography Discontinued 07/30/2020 Colon Cancer Screening-DNA Stool Discontinued 07/30/2020, 06/21/2019, 06/16/2019 Colon Cancer Screening-FIT Discontinued 07/30, 06/21/2019, 06/16/2019 Colon Cancer Screening-Sigmoidoscopy Discontinued 07/30/2020 Medical Devices Implanted Type Area Licensed Practical Nurse Instructor Device Identifier Shelf Expiration Date Model / Serial / Lot Marker Breast Biopsy Ultraclip Bard Biodur 108 Polyvinyl Alcohol Coil L12 Cm Od17 Ga Tissue 2 Trigger Permanent Ultrasound Visibility Rigid Needle Interwoven Sterile Disposable [place] - [id number] - [id number] Implanted:Qty: 1 on 04/16/2017 at [facility] Breast Right: Breast Bard Peripheral Vascular 09/20/2019 [id number] / [id number] / Procedures Procedure Name Priority Date/Time Associated Diagnosis Comments EGFR Routine 10/07/2024 1:40 PM CDT Annual physical exam HEMOGLOBIN A1C Routine 10/07/2024 1:40 PM CDT Type 2 diabetes mellitus with hyperlipidemia (HCC) LIPID PANEL Routine 10/07/2024 1:40 PM CDT Annual physical exam SCREENING MAMMOGRAM BILATERAL W JUAN C Schedule Routine, Read Routine (OP Routine) 05/02/2023 8:38 AM ACCOUNTING SPECIALIST Screening mammogram, encounter for COLONOSCOPY 07/30/2020 7:45 AM CDT from Last 3 Months or Most Recently Relevant to Health Maintenance Results * eGFR (10/07/2024 1:40 PM CDT) eGFR 79 >=60 mL/min/1. 73 m2 Comment: Interpretive Data [...] interpretive data was last reviewed 2020. Blood 10/07/2024 1:40 PM CDT 10/07/2024 2:21 PM CDT us Angelito Carrero MD LAB BLOOD ORDERABLES Fi nal Result Performing Organization Address [facility] Co de Phone Number MORELIA MONTALVO ([place]) 1 [facility] [place] [address] * Hemoglobin A1c (10/07/2024 1:40 PM CDT) Hgb A1C 5.6 4.0 - 5.6 % MORELIA MONT[facility] ([place]) Estimated Average Glucose 114 mg/dL MORELIA MONTALVO ([place]) Comment: The ADA recommends reporting an estimated Average Glucose (eAG) with all Hemoglobin A1c results using the equation derived from a study of 507 normal and diabetic adults. Minority populations were underrepresented and children were not included. (Diabetes Care 31:4599-8891, 2008). The eAG is not equivalent to a fasting glucose. Testing performed by: [facility], [facility], [place], [address] Blood 10/07/2024 1:40 PM CDT 10/07/2024 2:21 PM CDT us Angelito Carrero MD LAB BLOOD ORDERABLES Fi nal Result Performing Organization Address [facility] Co de Phone Number MORELIA MONTALVO ([place]) 1 [facility] [place] [address] * Lipid panel (10/07/2024 1:40 PM CDT) Cholesterol 181 30 - 199 mg/dL MORELIA MONTALVO ([place]) Comment: Interpretive Data Ages < or = [...] Data was last revised on 2017. Triglycerides 84 <=149 mg/dL MORELIA MONTALVO ([place]) Comment: Interpretive Data Ages < or = [...] Data was last revised on 2017. HDL 47 >=40 mg/dL MORELIA CARRAS[facility]) Comment: Interpretive Data Ages [...] was last revised on 2017. LDL, calculated 118 <=129 mg/dL MORELIA CARRASCO) Comment: Interpretive Data Ages [...] 2004;110:227 3. Hans Quinn al. EDGARDO Cardiol. 2020 June 23;5(5):540-548. doi: 10.1001/jamacardio.2020.0013 Current Interpretive Data was last revised on 2023. Testing performed by: [place], [address] Non-HDL Cholesterol 134 mg/dL MORELIA MONTALVO ([place]) Comment: Interpretive Data Ages < or = [...] Interpretive Data was last revised on 2017. Testing performed by: [place], [address] Chol/HDL ratio 4 CASEY MONTALVO ([place]) Comment:Testing performed by : [place], [address] Blood 10/07/2024 1:40 PM CDT 10/07/2024 2:21 PM CDT Narrative [facility]ELIA MONTAL[facility] ([place]) - 10/07/2024 2:42 PM CDT Has the patient been fasting for 8 hours or more?->Yes Angelito Carrero MD LAB BLOOD ORDERABLES Fi nal Result YUMIAYAZ MONTALVO ([place]) [address] [facility] Department [place] [address] * Screening Mammogram Bilateral W Juan C (05/02/2023 8:38 AM ACCOUNTING SPECIALIST) Anatomical Region Laterality Modality Breast Bilateral Mammography [...] Gallo MD - 07/30/2020 7:45 AM CDT [facility] Patient Name: Iesha Leon Procedure Date: 07/30/2020 7:45 AM Date of : 1970 Admit Type: Outpatient Age: 49 Gender: Female Attending MD: Hayden Gallo M.D. Room: [facility] 1 Note Status: Finalized Patient Profile: [...] under direct vision. The Pediatric Colonoscope [id number] was introducedthrough the anus and advanced to [...] 7:45 AM Procedure Code(s): --- Professional --- 74038, Colonoscopy, flexible; with biopsy, single or multiple Diagnosis Code(s): --- Professional --- K64.8, Other hemorrhoids K63.89, Other specified diseases of intestine R10.31, Right lower quadrant pain K92.1, Melena (includes Hematochezia) K57.30, Diverticulosis of large intestine without perforation orabscess without bleeding R93.3, Abnormal findings on diagnostic imaging of other parts of digestive tract CPT copyright 2019 [employer]. All rights reserved. The codes documented in this report are preliminary and upon medical coder reviewmay be revised to meet current compliance requirements. Recognized by the [employer] for promoting quality in endoscopy aHyden Gallo MD ENDOSCOPY PROCEDURES Final Result from Last 3 Months or Most Recently Relevant to Health Maintenance Insurance [facility] CHO[facility] PLUS [facility] PLUS [facility] PLUS Advance Directives For more information, please contact: [phone] * Full Code (Latest Code Status on File) Date Activated Date Inactivated Comments 07/30/2020 7:50 AM 07/30/2020 1:43 PM * Full Code Date Activated Date Inactivated Comments 07/30/2020 7:50 AM 07/30/2020 7:50 AM Care Teams Grainer Machine Relationship Specialty Start Date End Date Angelito Carrero MD PCP - General 09/27/12
== END 2025-02-10 13:04 | disposition home or self-care (01) ==
PROVIDERS: PCP Internal Medicine; Visit Provider Urology
DX: N13.30 Unspecified hydronephrosis (principal)
CPT/HCPCS: 78708; A9562